=== PATIENT | male | born 1970 | race American Indian/Alaskan Native ===

== ENCOUNTER 2021-06-22 13:15 | Observation (INO) | payer SELFPAY ==
[2021-06-22] MEDS ORDERED: NA CHLORIDE 0.9% 1,000 ML ONE (14:17)
[2021-06-22] MEDS ORDERED: THIAMINE 200 MG/2 ML INJ ONE (14:17)
[2021-06-22] MEDS ORDERED: LEVETIRACETAM 500 MG/5 ML VIAL IV ONE (14:17)
[2021-06-22] MEDS ORDERED: NA CHLORIDE 0.9% 100 ML IV ONE (14:17)
[2021-06-22] MEDS ORDERED: LORazepam 2 MG/ML VIAL ONE ×2 (14:17→17:50)
[2021-06-22 14:21] LABS: Absolute Lymphocytes (CBC) 1.9 K/uL (0.7-4.9); Hematocrit 40.8 % (39.6-49.0); Lymphocytes % 19.7 % (15.3-44.8); MPV 7.7 fL (7.6-11.3); RBC Red Blood Cell Count 4.55 M/uL (4.33-5.43)
[2021-06-22 14:26] LABS: Protime INR 0.97
[2021-06-22 14:53] LABS: ALT/SGPT 25 U/L (12-78); AST/SGOT 10 U/L (15-37); Albumin 3.7 g/dL (3.4-5.0); Alkaline Phosphatase 116 U/L (45-117); BUN Blood Urea Nitrogen 11 mg/dL (7-18); Bicarbonate 27 mmol/L (21-32); Bilirubin Total 0.3 mg/dL (0.2-1.0); Glucose Level 103 mg/dL (74-106); Magnesium 2.7 mg/dL (1.8-2.4); NT PRO-BNP 16 pg/mL (<125); Potassium 3.7 mmol/L (3.5-5.1); Sodium Level 141 mmol/L (136-145); Troponin High Sensitivity 20.4 pg/mL (<58.9)
[2021-06-22 14:55] LABS: Bilirubin Direct < 0.1 mg/dL (0-0.2)
--- NOTE | 2021-06-22 15:03 | RAD REPORT ---
EXAM DESCRIPTION: CT - Head Brain Wo Cont - 06/22/2021 2:56 pm CLINICAL HISTORY: Alteration of awareness/confusion COMPARISON: None TECHNIQUE: Computed axial tomography of the head was obtained. IV contrast was not requested. All CT scans are performed using dose optimization technique as appropriate and may include automated exposure control or mA/KV adjustment according to patient size. FINDINGS: An intracranial bleed is not seen . The ventricles are normal in caliber. No extra-axial fluid collection is noted. Mild to moderate low-density areas within periventricular, deep and subcortical white matter likely r epresent ischemic changes secondary to small vessel disease. Fluid within the sinuses/ mastoids is not seen. IMPRESSION: No acute intracranial abnormality is seen. If patient's symptoms persist MRI of the bra in would be recommended.
--- NOTE | 2021-06-22 15:25 | RAD REPORT ---
EXAM DESCRIPTION: Maurizio Single View06/22/2021 3:14 pm CLINICAL HISTORY: Cough COMPARISON: none FINDINGS: The lungs appear clear of acute infiltrate. The heart is normal size IMPRESSION: No acute abnormalities displayed
--- NOTE | 2021-06-22 15:29 | EDPHYS ---
Physician Documentation [facility] Name: Marcell Platt Age: 50 yrs Sex: Male : 1970 Arrival Date: 06/22/2021 Time: 13:27 Bed 2 Private MD: FAN Physician Serafin Rivas HPI: 06/22 13:47 This 50 yrs old Male presents to ER via Wheelchair with complaints of andreia Probable Seizure, Loss Of Vision. 13:47 The patient presents after having a single isolated seizure, that lasted 1 minute(s). andreia Character of seizure(s): Loss of consciousness: the patient did not lose consciousness. Seizure onset: just prior to arrival. Context: the seizure(s) was witnessed, by family. Seizure Hx: Seizure medications: Keppra. Associated injury: The patient did not suffer any apparent associated injury. Current symptoms: confusion. The patient has experienced similar episodes in the past, several times. Historical: - Allergies: 13:47 No Known Allergies; ab2 - PMHx: 13:47 Seizure; ab2 - PSHx: 13:47 None; ab2 - Immunization history:: Adult Immunizations up to date. - Social history:: Smoking status: unknown. - Family history:: not pertinent. ROS: 13:47 Constitutional: Negative for fever, chills, and weight loss, Eyes: Negative for injury, andreia pain, redness, and discharge, ENT: Negative for injury, pain, and discharge, Neck: Negative for injury, pain, and swelling, Cardiovascular: Negative for chest pain, palpitations, and edema, Respiratory: Negative for shortness of breath, cough, wheezing, and pleuritic chest pain, Abdomen/GI: Negative for abdominal pain, nausea, vomiting, diarrhea, and constipation, Back: Negative for injury and pain, : Negative for injury, bleeding, discharge, and swelling, MS/Extremity: Negative for injury and deformity, Skin: Negative for injury, rash, and discoloration, Psych: Negative for depression, anxiety, suicide ideation, homicidal ideation, and hallucinations, Allergy/Immunology: Negative for hives, rash, and allergies, Endocrine: Negative for neck swelling, polydipsia, polyuria, polyphagia, and marked weight changes, Hematologic/Lymphatic: Negative for swollen nodes, abnormal bleeding, and unusual bruising. 13:47 Neuro: Positive for seizure activity, weakness. Exam: 13:47 Constitutional: This is a well developed, well nourished patient who is awake, alert, andreia and in no acute distress. Head/Face: Normocephalic, atraumatic. Eyes: Pupils equal round and reactive to light, extra-ocular motions intact. Lids and lashes normal. Conjunctiva and sclera are non-icteric and not injected. Cornea within normal limits. Periorbital areas with no swelling, redness, or edema. ENT: Nares patent. No nasal discharge, no septal abnormalities noted. Tympanic membranes are normal and external auditory canals are clear. Oropharynx with no redness, swelling, or masses, exudates, or evidence of obstruction, uvula midline. Mucous membranes moist. Neck: Trachea midline, no thyromegaly or masses palpated, and no cervical lymphadenopathy. Supple, full range of motion without nuchal rigidity, or vertebral point tenderness. No Meningismus. Chest/axilla: Normal chest wall appearance and motion. Nontender with no deformity. No lesions are appreciated. Cardiovascular: Regular rate and rhythm with a normal S1 and S2. No gallops, murmurs, or rubs. Normal PMI, no JVD. No pulse deficits. Respiratory: Lungs have equal breath sounds bilaterally, clear to auscultation and percussion. No rales, rhonchi or wheezes noted. No increased work of breathing, no retractions or nasal flaring. Abdomen/GI: Soft, non-tender, with normal bowel sounds. No distension or tympany. No guarding or rebound. No evidence of tenderness throughout. Back: No spinal tenderness. No costovertebral tenderness. Full range of motion. Male : Normal genitalia with no discharge or lesions. Skin: Warm, dry with normal turgor. Normal color with no rashes, no lesions, and no evidence of cellulitis. MS/ Extremity: Pulses equal, no cyanosis. Neurovascular intact. Full, normal range of motion. Psych: Awake, alert, with orientation to person, place and time. Behavior, mood, and affect are within normal limits. 13:47 Neuro: Orientation: to person, Not oriented to place, time, situation, Mentation: confused, Memory: unable to test, Cranial nerves: grossly normal, is grossly normal based on the patient's age, no acute changes, Cerebellar function: is grossly normal, is grossly normal based on the patient's age, no acute changes, Motor: moves all fours, strength is normal, Sensation: is normal, no obvious gross deficits, appropriate Gait: not tested. Babinski testing is normal, seizure activity, is not displayed by the patient. 14:07 ECG was reviewed by the Attending Physician. andreia 17:50 Neck: ROM/movement: is normal, no acute changes, limited range of motion, is not andreia appreciated, Meningeal signs: are not present, Kernig's sign is negative, Brudzinski's sign is negative. Vital Signs: 13:45 BP 133 / 89; Pulse 59; Resp 18; Temp 97.3; Pulse Ox 100% on R/A; Weight 81.65 kg; ab2 Height 5 ft. 9 in. (175.26 cm); Pain 0/10; 15:00 BP 127 / 86; Pulse 61; Resp 18; Pulse Ox 98% ; ph 16:00 BP 129 / 92; Pulse 64; Resp 18; Pulse Ox 99% on R/A; ph 17:00 BP 151 / 92; Pulse 59; Resp 18; Pulse Ox 97% on R/A; ph 13:45 Body Mass Index 26.58 (81.65 kg, 175.26 cm) ab2 Izabela Coma Score: 13:48 Eye Response: spontaneous(4). Verbal Response: confused(4). Motor Response: obeys ab2 commands(6). Total: 14. MDM: 13:40 Patient medically screened. andreia 13:52 Differential diagnosis: cerebral vascular accident, drug overdose, cardiac arrhythmia, andreia seizure, TIA. Data reviewed: vital signs, nurses notes, lab test result(s), EKG, radiologic studies, CT scan, plain films. Data interpreted: traffic monitor specialist: rate is 59 beats/min, rhythm is regular, Pulse oximetry: on room air is 100 %. Test interpretation: by ED physician or midlevel provider: ECG, plain radiologic studies. Counseling: I had a detailed discussion with the patient and/or guardian regarding: the historical points, exam findings, and any diagnostic results supporting the discharge/admit diagnosis, lab results, radiology results, the need for outpatient follow up, for definitive care, 06/22 14:15 Order name: Basic Metabolic Panel; Complete Time: 15:28 EDMS 06/22 14:15 Order name: Liver (Hepatic) Function; Complete Time: 15:28 EDNM 06/22 13:47 Order name: XRAY Chest (1 view); Complete Time: 15:28 [facility] 06/22 13:47 Order name: CT Head Brain wo Cont; Complete Time: 15:28 [facility] 06/22 14:15 Order name: Troponin High Sensitivity; Complete Time: 15:28 EDNM 06/22 14:15 Order name: NT PRO-BNP; Complete Time: 15:28 [facility] 06/22 14:15 Order name: Acetaminophen Level; Complete Time: 15:28 EDNM 06/22 14:15 Order name: Magnesium; Complete Time: 15:28 [facility] 06/22 14:15 Order name: Alcohol Serum/Plasma; Complete Time: 15:28 [facility] 06/22 14:15 Order name: Salicylates Level EDNM 06/22 14:15 Order name: CBC with Automated Diff; Complete Time: 15:28 [facility] 06/22 14:15 Order name: Protime (+INR); Complete Time: 15:28 [facility] 06/22 14:15 Order name: PTT, Activated Partial Thromb; Complete Time: 15:28 [facility] 06/22 14:15 Order name: Urine Drug Screen; Complete Time: 18:12 [facility] 06/22 15:47 Order name: AMMONIA; Complete Time: 18:12 [facility] 06/22 16:48 Order name: COVID-19 SARS RT PCR (Document "Date of Onset" if Symptomatic) 06/22 17:17 Order name: Urine Dipstick-Ancillary; Complete Time: 18:12 [facility] 06/22 13:47 Order name: EKG; Complete Time: 14:36 [facility] 06/22 13:47 Order name: Cardiac monitoring; Complete Time: 13:55 [facility] 06/22 13:47 Order name: EKG - Nurse/Tech; Complete Time: 13:55 [facility] 06/22 13:47 Order name: IV Saline Lock; Complete Time: 13:55 [facility] 06/22 13:47 Order name: Labs collected and sent; Complete Time: 14:08 [facility] 06/22 13:47 Order name: O2 Per Protocol; Complete Time: 13:55 [facility] 06/22 13:47 Order name: O2 Sat Monitoring; Complete Time: 14:08 [facility] 06/22 13:47 Order name: Suicide Screening (Combs); Complete Time: 19:47 andreia 06/22 13:47 Order name: Urine Dipstick-Ancillary (obtain specimen); Complete Time: 19:47 andreia 06/22 13:47 Order name: Seizure Precautions; Complete Time: 14:07 andreia EC: Rate is 60 beats/min. Rhythm is regular. QRS [place] is Normal. [place] interval is normal. QRS andreia interval is normal. QT interval is normal. No Q waves. T waves are Normal. No ST changes noted. Clinical impression: Normal ECG and No evidence of ischemia. Interpreted by me. Reviewed by me. Administered Medications: 14:31 Drug: NS 0.9% 1000 ml Route: IV; Rate: 1 bolus; Site: right antecubital; ph 16:50 Follow up: Response: No adverse reaction; IV Status: Completed infusion ph 14:31 Drug: Keppra (levETIRAcetam) 1000 mg Route: IV; Rate: per protocol; Site: right ph antecubital; 14:50 Follow up: Response: No adverse reaction; IV Status: Completed infusion ph 14:31 Drug: Thiamine 100 mg Route: IV; Rate: per protocol; Site: right antecubital; ph 14:45 Follow up: Response: No adverse reaction; IV Status: Completed infusion ph 14:31 Drug: Ativan (LORazepam) 1 mg Route: IVP; Site: right antecubital; ph 19:35 Follow up: Response: No adverse reaction ph 18:00 Drug: Geodon (ziprasidone) 20 mg Route: IM; Site: right deltoid; vg1 19:34 Follow up: Response: No adverse reaction ph Disposition Summary: 06/22/21 16:32 Hospitalization Ordered Hospitalization Status: Observation andreia Provider: Julio Alvarenga andreia Condition: Fair(06/22/21 16:32) andreia Problem: new(06/22/21 16:32) andreia Symptoms: have improved(06/22/21 16:32) andreia Bed/Room Type: Standard andreia Location: [facility] ER HOLD(06/22/21 19:27) Room Assignment: ERHOLD-(06/22/21 19:27) mw Diagnosis - Epileptic seizures related to external causes, not intractable(06/22/21 16:32) andreia - Altered mental status, unspecified andreia Forms: - Medication Reconciliation Form andreia - SBAR form andreia Signatures: Dispatcher [employer] EDMS Shannon Ann RN RN mw Anderson, Corey, MD MD cha Hall, Patricia RN RN [facility], Palmira, RN RN vg1 Fili Napoles2 Corrections: (The following items were deleted from the chart) 14:46 14:36 BASIC METABOLIC PANEL+C.LAB.BRZ ordered. EDMS EDMS 14:46 14:36 HEPATIC FUNCTION+C.LAB.BRZ ordered. EDMS EDMS 14:46 14:36 MAGNESIUM+C.LAB.BRZ ordered. EDMS EDMS 14:46 14:36 PROBNP+C.LAB.BRZ ordered. EDMS EDMS 14:46 14:36 Troponin High Sensitivity+C.LAB.BRZ ordered. EDMS EDMS 14:46 14:36 ACETAMINOPHEN+C.LAB.BRZ ordered. EDMS EDMS 14:46 14:36 ETHANOL+C.LAB.BRZ ordered. EDMS EDMS 14:47 14:36 CBC+H.LAB.BRZ ordered. EDMS EDMS 14:47 14:36 PROTIME (+INR)+COAG.LAB.BRZ ordered. EDMS EDMS 14:47 14:36 PTT, ACTIVATED+COAG.LAB.BRZ ordered. EDMS EDMS 14:47 14:36 SALICYLATE+C.LAB.BRZ ordered. EDMS EDMS 14:47 14:36 URINE DRUG SCREEN+CHEM UR.LAB.BRZ ordered. EDMS EDMS 16:31 15:29 Home andreia andreia 16:31 15:29 new nadreia andreia 16:31 15:29 have improved andreia andreia 16:31 15:29 Stable andreia andreia 16:31 15:29 Epileptic seizures related to external causes, not intractable andreia andreia 19:27 16:32 Telemetry/MedSurg (observation) andreia mw 19: 16:32 andreia mw
--- NOTE | 2021-06-22 15:29 | ER ---
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 Pt was disoriented and stated he ab2 couldn't see out of either of his eyes. Pt disoriented on arrival. Coronavirus screen: Client denies travel out of the [place] in the last 14 days. At this time, the client does not indicate any symptoms associated with coronavirus-19. Ebola Screen: Patient negative for fever greater than or equal to 101.5 degrees Fahrenheit, and additional compatible Ebola Virus Disease symptoms Patient denies exposure to infectious person. Patient denies travel to an Ebola-affected area in the 21 days before illness onset. No symptoms or risks identified at this time. Initial Sepsis Screen: Does the patient meet any 2 criteria? No. Patient's initial sepsis screen is negative. Does the patient have a suspected source of infection? No. Patient's initial sepsis screen is negative. Risk Assessment: Do you want to hurt yourself or someone else? Patient reports no desire to harm self or others. Onset of symptoms is unknown. 13:45 Method Of Arrival: Wheelchair ab2 13:45 Acuity: STEPHANY 3 ab2 Triage Assessment: 13:48 General: Appears in no apparent distress. comfortable, Behavior is calm, cooperative, ab2 appropriate for age. Pain: Denies pain. Neuro: Level of Consciousness is awake, alert, Oriented to person, place, situation, Shucker are equal bilaterally Moves all extremities. Speech is normal. Neuro: Seizure activity reported prior to arrival. Cardiovascular: No deficits noted. Denies chest pain, shortness of breath, Patient's skin is warm and dry. Respiratory: Airway is patent Respiratory effort is even, unlabored, Respiratory pattern is regular. GI: No deficits noted. No signs and/or symptoms were reported involving the gastrointestinal system. Derm: No deficits noted. Historical: - Allergies: 13:47 No Known Allergies; ab2 - PMHx: 13:47 Seizure; ab2 - PSHx: 13:47 None; ab2 - Immunization history:: Adult Immunizations up to date. - Social history:: Smoking status: unknown. - Family history:: not pertinent. Screenin:30 Abuse screen: Denies threats or abuse. Denies injuries from another. Nutritional ph screening: No deficits noted. Tuberculosis screening: No symptoms or risk factors identified. Fall Risk None identified. Assessment: 14:30 Reassessment: Pt oriented to person and place but seems confused, when questioned about ph seizure hx pt states " I take two pills a day and I did it every day, over and over and then I started taking one pill a day." Speech then becomes garbled, rambling and difficult to understand. General: Appears in no apparent distress. slender, Behavior is cooperative. Pain: Denies pain. Neuro: Level of Consciousness is awake, alert, obeys commands, Oriented to person, place, Reports blurred vision headache. Cardiovascular: Capillary refill < 3 seconds in bilateral fingers Patient's skin is warm and dry. Respiratory: Airway is patent Respiratory effort is even, unlabored, Respiratory pattern is regular, symmetrical. Derm: Skin is intact, Skin is pink, warm \\T\\ dry. Musculoskeletal: Circulation, motion, and sensation intact. Range of motion: intact in all extremities. 15:05 Reassessment: Pt returned from CT, health physics technician reports that pt was very confused during CT ph and had trouble following directions. Also reported that pt was talking about "[place] and that they were kicking him out of the [place]." Pt now resting quietly in bed, fluids infusing VSS. 16:00 Reassessment: Patient appears in no apparent distress at this time. Patient and/or ph family updated on plan of care and expected duration. Pain level reassessed. Pt's partner at bedside, states that pt has been having seizures for some time but they have become more frequent over the past few months, " Then he started taking the Keppra twice a day and that's when he started getting confused. The Dr where we are from decreased his dose to once a day but he's still having confusion." States that pt does not use street drugs or alcohol. 17:15 Reassessment: Pt up out of bed, taking off hospital gown, noted to have d/c own IV, ph states, " Where are my shirts and shit, were are my shoes." Pt states that he is leaving, I explained that he was being admitted to see the neurologist, pt states, " I know, but where are my shoes? They keep calling my phone and calling, then hanging up.". 17:20 Reassessment: Pt fully clothed and leaving room, asked pt to come back to room so he ph can wait to be admitted and he refused, wandering around ED attempting to find exit, going into empty pt rooms, called friend Antonino to come back to ED to try and calm pt down, pt then went into lobby and tried to open windows as if they were doors, " Just let me get out of here man." Explained to pt that we did not want him to leave by himself because we were concerned for his safety. PD contacted by unit manager rn. 18:00 Reassessment: Pt's friend/roommate Antonino arrived at ED and was able to convince pt to ph return to exam room 2, accompanied by BETTY CONTRERAS, pt sat in bed , asked him to remove his hoodie so that we could put the hospital gown back on, pt did so, then threw his hoodie into nurse's face. Johnson administered IM, pt lying in bed w/ friend at bedside. 18:35 Reassessment: Pt asleep w/ equal and unlabored respirations. ph 19:55 General: attempted to start IV. pt woke up, removed tourniquet "get away, get away, get as6 away, get away" pt put covers over head and would not allow vital signs to be obtained. respirations are even and unlabored. no apparent distress noted . Vital Signs: 13:45 BP 133 / 89; Pulse 59; Resp 18; Temp 97.3; Pulse Ox 100% on R/A; Weight 81.65 kg; ab2 Height 5 ft. 9 in. (175.26 cm); Pain 0/10; 15:00 BP 127 / 86; Pulse 61; Resp 18; Pulse Ox 98% ; ph 16:00 BP 129 / 92; Pulse 64; Resp 18; Pulse Ox 99% on R/A; ph 17:00 BP 151 / 92; Pulse 59; Resp 18; Pulse Ox 97% on R/A; ph 13:45 Body Mass Index 26.58 (81.65 kg, 175.26 cm) ab2 [place] Coma Score: 13:48 Eye Response: spontaneous(4). Verbal Response: confused(4). Motor Response: obeys ab2 commands(6). Total: 14. ED Course: 13:27 Patient arrived in ED. jj6 13:40 Serafin Rivas MD is Attending Physician. andreia 13:47 Triage completed. ab2 13:49 Arm band placed on right wrist. ab2 14:00 Inserted saline lock: 20 gauge in left antecubital area, using aseptic technique. Blood kj1 collected. 14:00 Initial lab(s) drawn, by me, sent to lab. kj1 14:20 Seizure precautions initiated. ph 14:25 Sarah Curtis, RN is Primary Nurse. ph 14:57 CT Head Brain wo Cont In Process Unspecified. EDMS 15:16 XRAY Chest (1 view) In Process Unspecified. EDMS 15:29 Chang Acosta MD is Referral Physician. andreia 16:32 Julio Alvaregna is Hospitalizing Provider. andreia 17:20 COVID swab sent to lab. vg1 17:33 [facility] PD called/ patient not wanting to come back inside building. eb 04 06:12 No provider procedures requiring assistance completed. Patient admitted, IV remains in as6 place. 08:19 [facility] Police department called and notified of the patient busting the eb bay doors open and leaving/ family not at bedside but notified by charge nurse of patient leaving. Administered Medications: 06/22 14:31 Drug: NS 0.9% 1000 ml Route: IV; Rate: 1 bolus; Site: right antecubital; ph 16:50 Follow up: Response: No adverse reaction; IV Status: Completed infusion ph 14:31 Drug: Keppra (levETIRAcetam) 1000 mg Route: IV; Rate: per protocol; Site: right ph antecubital; 14:50 Follow up: Response: No adverse reaction; IV Status: Completed infusion ph 14:31 Drug: Thiamine 100 mg Route: IV; Rate: per protocol; Site: right antecubital; ph 14:45 Follow up: Response: No adverse reaction; IV Status: Completed infusion ph 14:31 Drug: Ativan (LORazepam) 1 mg Route: IVP; Site: right antecubital; ph 19:35 Follow up: Response: No adverse reaction ph 18:00 Drug: Geodon (ziprasidone) 20 mg Route: IM; Site: right deltoid; vg1 19:34 Follow up: Response: No adverse reaction ph Outcome: 15:29 Discharge ordered by . andreia 16:32 Decision to Hospitalize by Provider. andreia 06/23 06:12 Admitted to ER Hold. Please see [facility] for further documentation. as6 Condition: stable 09:06 Patient left the ED. ss Signatures: Dispatcher [employer] EDOR Serafin Rivas, Hanna Hayden MD, cha, RN RN ss Sarah Curtis RN RN Aline Bardales Kandis kj1 Palmira Coker RN RN vg1 Noy Arthur Ashby, RN RN as6 Fili Napoles Corrections: (The following items were deleted from the chart) 06/22 14:06 14:05 Initial lab(s) drawn, by fl, sent to lab. kj1 kj1 14:32 14:31 Thiamine 100 mg IV at per protocol in left antecubital ph ph
[2021-06-22 17:17] LABS: Urine Blood Negative (Negative); Urine Glucose Negative (Negative); Urine Protein Negative (Negative); Urine Specific Gravity 1.015 (1.005-1.030)
--- NOTE | 2021-06-22 17:25 | P.HP ---
Certification for Inpatient Patient admitted to: Observation With expected LOS: <2 Midnights Practitioner: I am a practitioner with admitting privileges, knowledge of patient current condition, hospital course, and medical plan of care. Services: Services provided to patient in accordance with Admission requirements found in Title 42 Section 412.3 of the Code of Federal Regulations Patient History Date of Service: 06/22/21 Reason for admission: Seizures History of Present Illness: 50-year-old gentleman with a history of seizure disorder was brought to the emergency department because patient had a seizure associated with altered mental status. Per report his Keppra dose was decreased from 500 mg twice a day to 500 mg daily. Patient was somnolent during my examination in the ED and could not provide any history. He was even refusing physical examination. Head CT negative. Blood work unremarkable. Toxicology screen is negative. Neurology-Dr. Acosta contacted, patient given a loading dose of Keppra 1000 mg IV. He is hospitalized for further management. - Past Medical/Surgical History -: Seizure disorder - Social History Smoking Status: Unknown if ever smoked Place of Residence: Home Review of Systems is unable to be obtained (Due to AMS) Physical Examination - Physical Exam General: In no apparent distress, Other (Somnolent) HEENT: Sclerae nonicteric Cardiovascular: No edema Gastrointestinal: Non-distended Musculoskeletal: No swelling Integumentary: No rashes, No cyanosis Neurological: Other (Somnolent, patient moves all extremities.) Other Physical/Emotional Findings: Patient refused examination. - Studies Laboratory Data (last 24 hrs) 06/22/21 14:00: PT 10.7, INR 0.97, APTT 37.2 H 06/22/21 14:00: WBC 9.6, Hgb 13.8, Hct 40.8, Plt Count 253 06/22/21 14:00: Sodium 141, Potassium 3.7, BUN 11, Creatinine 0.93, Glucose 103, Magnesium 2.7 H, Total Bilirubin 0.3, AST 10 L, ALT 25, Alkaline Phosphatase 116 06/22/21 13:47: PT Cancelled, INR Cancelled, APTT Cancelled 06/22/21 13:47: WBC Cancelled, Hgb Cancelled, Hct Cancelled, Plt Count Cancelled 06/22/21 13:47: Sodium Cancelled, Potassium Cancelled, BUN Cancelled, Creatinine Cancelled, Glucose Cancelled, Magnesium Cancelled, Total Bilirubin Cancelled, AST Cancelled, ALT Cancelled, Alkaline Phosphatase Cancelled Assessment and Plan - Problems (Diagnosis) (1) Seizures Current Visit: Yes Status: Acute (2) Altered mental status Current Visit: Yes Status: Acute - Plan AMS likely due to post ictal state. Place patient under observation Patient given a loading dose of IV Keppra. Will continue with Keppra IV 500 mg twice daily. Neurology consulted Seizure precautions Neurochecks Monitor and optimize electrolytes. - Advance Directives Does patient have a Living Will: No Does patient have a Durable POA for Healthcare: No
[2021-06-22 17:35] LABS: Barbiturates NEGATIVE (NEGATIVE); Benzodiazepines NEGATIVE (NEGATIVE); Cocaine NEGATIVE (NEGATIVE); METHAMPHETAM NEGATIVE (NEGATIVE); Methadone NEGATIVE (NEGATIVE); Opiates NEGATIVE (NEGATIVE); Phencyclidine NEGATIVE (NEGATIVE); THC Cannibis NEGATIVE (NEGATIVE)
[2021-06-22] MEDS ORDERED: ZIPRASIDONE MESYLA 20 MG/VIAL IM ONE (17:51)
[2021-06-22] MEDS ORDERED: WATER FOR INJ,STERILE 10 ML ONE (17:51)
[2021-06-23] MEDS ORDERED: NA CHLORIDE 0.9% 1,000 ML IV SCH (02:48)
[2021-06-23] MEDS ORDERED: ONDANSETRON 4 MG/2 ML VIAL IV PRN (02:48)
[2021-06-23 06:11] VITALS: O2SAT 96
[2021-06-23 06:13] VITALS: BMI 12.0
--- NOTE | 2021-06-23 08:58 | P.DS ---
Admission Date: 06/22/21 Discharge Date: 06/23/21 Disposition: AMA-LEFT AGAINST MEDICAL ADVIC Discharge Condition: FAIR Reason for Admission: Seizures - Problems (1) Seizures Status: Acute (2) Altered mental status Status: Acute Brief History of Present Illness: 50-year-old gentleman with a history of seizure disorder was brought to the emergency department because patient had a seizure associated with altered mental status. Per report his Keppra dose was decreased from 500 mg twice a day to 500 mg daily. Patient was somnolent during my examination in the ED and could not provide any history. He was even refusing physical examination. Head CT negative. Blood work unremarkable. Toxicology screen is negative. Neurology-Dr. Acosta contacted, patient given a loading dose of Keppra 1000 mg IV. He is hospitalized for further management. Hospital Course: Patient placed on observation on the medical floor and started on IV Keppra. Patient was somnolent initially somnolent. I am told patient became more alert this morning and decided to sign out AGAINST MEDICAL ADVICE. He would not wait to be evaluated so I did not get a chance to see him before he left. Recommended he takes Keppra 500 mg twice a day and follow-up with his neurologist CHAPO. Other Physical/Emotional Findings: Patient refused examination. Laboratory Data at Discharge: WBC 9.6 K/uL (4.3-10.9) 06/22/21 14:00 Hgb 13.8 g/dL (13.6-17.9) 06/22/21 14:00 Hct 40.8 % (39.6-49.0) 06/22/21 14:00 Plt Count 253 K/uL (152-406) 06/22/21 14:00 PT 10.7 SECONDS (9.5-12.5) 06/22/21 14:00 INR 0.97 06/22/21 14:00 APTT 37.2 SECONDS (24.3-36.9) H 06/22/21 14:00 Sodium 141 mmol/L (136-145) 06/22/21 14:00 Potassium 3.7 mmol/L (3.5-5.1) 06/22/21 14:00 BUN 11 mg/dL (7-18) 06/22/21 14:00 Creatinine 0.93 mg/dL (0.55-1.3) 06/22/21 14:00 Glucose 103 mg/dL (74-106) 06/22/21 14:00 Magnesium 2.7 mg/dL (1.8-2.4) H 06/22/21 14:00 Total Bilirubin 0.3 mg/dL (0.2-1.0) 06/22/21 14:00 AST 10 U/L (15-37) L 06/22/21 14:00 ALT 25 U/L (12-78) 06/22/21 14:00 Alkaline Phosphatase 116 U/L (45-117) 06/22/21 14:00 Home Medications: levETIRAcetam [Keppra Tab] 500 mg PO BID #60 tab 06/23/21 New Medications: levETIRAcetam [Keppra Tab] 500 mg PO BID #60 tab Diet: Regular Activity: Seizure precautions Followup: Unknown,U [Primary Care Provider] - Chang Acosta MD [ASSOCIATE-ACTIVE - CAN ADMIT] - 1-2 Weeks
[2021-06-23] MEDS ORDERED: ENOXAPARIN 40 MG/0.4 ML SQ SCH (09:00)
[2021-06-23] MEDS ORDERED: levETIRAcetam 500 MG in NA CHLORIDE 0.9% 100 ML IV SCH (09:00)
[2021-06-23 09:26] VITALS: TEMP 97.3
[2021-06-23 09:30] VITALS: BP 151/92
--- NOTE | 2021-06-24 09:41 | EKG ---
Test Date: 2021-06-22 Test Time: 13:58:37 Associate Research Scientist: JARET MEASUREMENT RESULTS: Intervals: Rate: 60 SC: 196 QRSD: 126 QT: 460 QTc: 460 Celestine: P: 56 SC: 196 QRS: 38 T: 50 INTERPRETIVE STATEMENTS: Normal sinus rhythm Nonspecific intraventricular block Abnormal ECG No previous ECG available for comparison Electronically Signed On 06-24-21 09:36:04 CDT by Gavino Escobedo
== END 2021-06-23 08:55 | disposition left against medical advice (07) ==
LOC: ER 13:15 → ERHOLD 17:05
PROVIDERS: ADMIT Internal Medicine; ATTEND Internal Medicine
DX: R56.9 Unspecified convulsions (principal); Z53.21 Procedure and treatment not carried out due to patient leaving prior to being seen by health care provider; R41.82 Altered mental status, unspecified; Z20.822 Contact with and (suspected) exposure to COVID-19
CPT/HCPCS: 36415; 70450; 71045; 80048; 80076; 80307; 80320; 80329; 81003; 82140; 83735; 83880; 84484; 85025; 85610; 85730; 93005; 96361; 96365; 96372; 96375; 99285; G0378; J1953; J3411; J3486; J7030; U0003

== ENCOUNTER 2022-10-03 18:53 | Inpatient (IN) | payer OTHER ==
--- NOTE | 2022-10-03 19:26 | RAD REPORT ---
EXAM DESCRIPTION: CT - Ct Stroke Brain Wo Cont - 10/03/2022 7:16 pm CLINICAL HISTORY: STROKE ALERT Headache, drowsiness, CVA COMPARISON: Head Brain Wo Cont dated 06/22/2021 TECHNIQUE: All CT scans are performed using dose optimization technique as appropriate and may inclu de automated exposure control or mA/KV adjustment according to patient size. FINDINGS: No intracranial hemorrhage, hydrocephalus or extra-axial fluid collection.Advanced general ized brain atrophy is present with moderate periventricular and deep white matter chronic microvascul ar ischemic changes.3 cm area of diminished density in the left parietal region may be related to starr or infarct. The paranasal sinuses and mastoids are clear. The calvarium is intact. IMPRESSION: No acute intracranial abnormality. If there is continued clinical concern for CVA, MR imaging of the brain would be recommended. The findings were discussed with Dr. Alonso in the ER On 10/03/2022 at 7:20 p.m. by telephone.
--- OUTSIDE RECORDS SUMMARY | 2022-10-03 19:35 | XMS REPORT | Continuity of Care Document ---
:1970 Author Organization [facility] t Address [address] [place] [address] [place] [id number] Care Team Providers Name Role Phone Pcp, Patient Does Not Have Primary Care Physician Unavailabl e Payers Payer Name Policy Type Policy Number Effective Date Expiration Date S ource Problems Condition Condition Condition Status Onset Resolution Last Treating Co mments Source Name Details Category Date Date Treatment Clinician Date Hallucinat Hallucinat Disease Active H arris ions ions Health Allergies, Adverse Reactions, Alerts Allergy Allergy Status Severity Reaction(s) Onset Inactive Treating Comm ents Source Name Type Date Date Clinician Penicill Propensi Active Other [place] ins ty to 07-02 Health adverse 00:00: reaction 00 s to drug Social History Social Habit Start Date Stop Date Quantity Comments Source Gender identity [place] Dario alth Sexual orientation [facility] Sex Assigned At [birth year] [facility] 00:00:00 00:00:00 Medications This patient has no known medications. Procedures This patient has no known procedures. Plan of Care Planned Activity Planned Date Details Comments Source Future Scheduled Test 2022-12-14 00:00:00 IMM Influenza [facility] Seasonal (>/= 19 yrs) [code = IMM Influenza Seasonal (>/= 19 yrs)] Future Scheduled Test 2020 00:00:00 Screening for [facility] malignant neoplasm of colon (procedure) [code = 650598191] Future Scheduled Test 1971-04-27 00:00:00 COVID-19 Vaccine (#1) [facility] [code = COVID-19 Vaccine (#1)] Encounters Start End Encounter Admission Attending Care Care Encounter Source Date/Time Date/Time Type Type Clinicians Facility Department ID 2022-09-30 2022-09-30 Outpatient [facility] SFA [id number] [place] 09:55:13 09:55:13 [id number] F Cla[place] 2021-07-02 2021-07-03 Emergency [facility] MED [id number] [place] 15:58:00 03:36:00 Health Results This patient has no known results.
--- NOTE | 2022-10-03 19:37 | RAD REPORT ---
EXAM DESCRIPTION: CT - Head angio - 10/03/2022 7:29 pm CLINICAL HISTORY: AMS; R SIDED WEAKNESS Headache, drowsiness, CVA COMPARISON: Ct Stroke Brain Wo Cont dated 10/03/2022; Head Brain Wo Cont dated 06/22/2021 TECHNIQUE: CT angiography of the head was performed with MIPs. All CT scans are performed using dose optimization technique as appropriate and may include automated exposure control or mA/KV adjustment according to patient size. FINDINGS: No evidence of large vessel occlusion. No evidence of aneurysm is detected. No flow-limiti ng stenosis or vascular malformation identified. Antegrade flow is seen in the vertebral arteries. The vertebral arteries are codominant. The visualized dural venous sinuses are patent. IMPRESSION: No significant flow abnormality is detected.
--- NOTE | 2022-10-03 19:39 | RAD REPORT ---
EXAM DESCRIPTION: CT - Neck Angio - 10/03/2022 7:29 pm CLINICAL HISTORY: AMS; R SIDED WEAKNESS Headache, drowsiness, CVA COMPARISON: No comparisons TECHNIQUE: CT angiography of the neck vessels was performed with MIPs. All CT scans are performed using dose optimization technique as appropriate and may include automated exposure control or mA/KV adjustment according to patient size. FINDINGS: A left aortic arch is identified with normal three vessel configuration of the great vesse ls. No significant flow abnormality is seen of the common carotid bilaterally. No significant stenosis is identified involving the cervical segments of both internal carotid arteri es. Normal flow is seen within both vertebral arteries. There is a 3.8 x 2.2 cm cystic mass anterior to the thyroid cartilage. IMPRESSION: No significant flow abnormality of the neck vessels is identified. 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 NASCET criteria used. Mild 0-49% stenosis Moderate 50-69% stenosis Severe 70-99% stenosis
[2022-10-03 19:54] LABS: Absolute Lymphocytes (CBC) 1.5 K/uL (0.7-4.9); Hematocrit 39.5 % (39.6-49.0); Lymphocytes % 21.3 % (15.3-44.8); MCV 92.1 fL (80-100); MPV 7.5 fL (7.6-11.3); RBC Red Blood Cell Count 4.29 M/uL (4.33-5.43)
[2022-10-03 20:05] LABS: Protime INR 1.09
[2022-10-03 20:16] LABS: Magnesium 2.3 mg/dL (1.6-2.4); Potassium 3.7 mEq/L (3.5-5.1); Troponin High Sensitivity 32.1 pg/mL (<58.9)
--- NOTE | 2022-10-03 20:46 | RAD REPORT ---
EXAM DESCRIPTION: RAD - Chest Single View - 10/03/2022 8:04 pm CLINICAL HISTORY: AMS, right arm weakness Chest pain. COMPARISON: Chest Single View dated 06/22/2021 FINDINGS: Portable technique limits examination quality. The lungs are grossly clear. The heart is normal in size. No displaced fractures. IMPRESSION: No acute intrathoracic process suspected.
--- NOTE | 2022-10-03 20:47 | ER ---
Nurse's Notes [facility] Name: Marcell Platt Age: 51 yrs Sex: Male : 1970 Arrival Date: 10/03/2022 Time: 18:53 Bed 2 Private MD: Diagnosis: Altered mental status, unspecified;Weakness-right upper extremity Presentation: 10/03 18:59 Chief complaint: EMS states: They were called to patient's home for right sided cm10 weakness. EMS also reports that patient has been confused for the last 2 days. Pt can state his name, location and the president. Coronavirus screen: Client denies travel out of the [place] in the last 14 days. At this time, the client does not indicate any symptoms associated with coronavirus-19. Ebola Screen: No symptoms or risks identified at this time. Initial Sepsis Screen: Does the patient meet any 2 criteria? No. Patient's initial sepsis screen is negative. Does the patient have a suspected source of infection? No. Patient's initial sepsis screen is negative. Risk Assessment: Do you want to hurt yourself or someone else? Patient reports no desire to harm self or others. Onset of symptoms was October 01, 2022. 18:59 Method Of Arrival: EMS: [facility] cm10 18:59 Acuity: STEPHANY 3 cm10 19:03 Care prior to arrival: IV initiated. 20 GA, in the right antecubital area, Glucose cm10 check: 109. Triage Assessment: 19:02 General: Appears in no apparent distress. comfortable, Behavior is calm, cooperative. cm10 Neuro: No deficits noted. Level of Consciousness is awake, alert, Oriented to person, place. Respiratory: No deficits noted. Airway is patent Respiratory effort is even, unlabored, Respiratory pattern is regular, symmetrical. Historical: - Allergies: 19:01 PENICILLINS; cm10 - PMHx: 19:01 Seizure; Cerebrovascular accident; cm10 - Immunization history:: Adult Immunizations unknown. - Social history:: Smoking status: Patient/guardian denies using tobacco. Screenin:02 [facility] ED Fall Risk Assessment (Adult) History of falling in the last 3 months, cm10 including since admission No falls in past 3 months (0 pts) Confusion or Disorientation Yes (5 pts) Intoxicated or Sedated No (0 pts) Impaired Gait No (0 pts) Mobility Assist Device Used No (0 pt) Altered Elimination No (0 pt) Score/Fall Risk Level 3 or more points = High Risk Oriented to surroundings, Maintained a safe environment, Hourly rounding (assess needs \T\ fall precautionary measures) done. Abuse screen: Denies threats or abuse. Denies injuries from another. Nutritional screening: No deficits noted. Tuberculosis screening: No symptoms or risk factors identified. Assessment: 19:10 VAN Scoring: Arm Drift: Minor drift Aphasia: Receptive aphasia noted. Provider notified jb4 of +VAN scoring. TNKase (Tenecteplase) Screening: Contraindications: Patient reports onset of signs and symptoms of stroke greater than 6 hours ago: Yes. General: Appears in no apparent distress. comfortable, Behavior is calm, cooperative, appropriate for age. Pain: Denies pain. Neuro: Level of Consciousness is awake, alert, Oriented to person, place, Weakness in right arm(s). Cardiovascular: Patient's skin is warm and dry. Respiratory: Airway is patent Respiratory effort is even, unlabored, Respiratory pattern is regular, symmetrical. GI: No signs and/or symptoms were reported involving the gastrointestinal system. : No signs and/or symptoms were reported regarding the genitourinary system. EENT: No signs and/or symptoms were reported regarding the EENT system. Derm: Skin is intact, Skin is pink, warm \T\ dry. Musculoskeletal: Circulation, motion, and sensation intact. Range of motion: intact in all extremities. 20:06 Reassessment: Per family Pt has history of CVA in the past. Prior deficits are jb4 intermittent confusion, tunnel vision and ataxia on the left side. 20:35 [place] Swallow Protocol Brief Cognitive Screen What is your name? Normal, Where are you jb4 right now? Normal, What year is it? Abnormal: Does not know month or year. 3 oz Water Swallow Challenge: Pt able to drink all water without stopping, coughing, choking or throat clearing: Yes Result: PASS. Vital Signs: 18:59 BP 121 / 89; Pulse 80; Resp 16; Temp 98.7; Pulse Ox 98% ; Weight 65.77 kg; Height 5 ft. cm10 9 in. ; 20:29 BP 129 / 90; Pulse 73; Resp 16; Pulse Ox 100% on R/A; jb4 21:26 BP 122 / 85; Pulse 75; Resp 16; Pulse Ox 98% on R/A; jb4 18:59 Body Mass Index 21.41 (65.77 kg, 175.26 cm) cm10 NIH Stroke Scale Scores: 19:10 NIHSS Score: 3 jb4 19:18 NIHSS Score: 4 cp 20:55 NIHSS Score: 3 jb4 ED Course: 18:58 Patient arrived in ED. cm10 18:59 Serafin Allen PA is PHCP. cp 18:59 Roni Alonso MD is Attending Physician. cp 19:01 Triage completed. cm10 19:02 Arm band placed on Patient placed in an exam room, on a stretcher. cm10 19:10 Shereen Montalvo, RN is Primary Nurse. cm10 19:18 CT Stroke Brain w/o Contrast In Process Unspecified. EDMS 19:31 Head angio In Process Unspecified. EDMS 19:31 Neck Angio In Process Unspecified. EDMS 20:06 Stroke CXR 1 View In Process Unspecified. EDMS 20:12 Bed in low position. Call light in reach. Side rails up X2. Adult w/ patient. Client wm placed on continuous cardiac and pulse oximetry monitoring. NIBP monitoring applied. desk monitor on. 20:12 EKG done, by ED staff, reviewed by Serafin HUTTON. wm 20:45 Dusty Alonso MD is Hospitalizing Provider. cp 20:55 Andrés Jimenez, JORDYN is Primary Nurse. jb4 21:57 No provider procedures requiring assistance completed. Patient admitted, IV remains in jb4 place. Administered Medications: 20:49 Drug: Aspirin PO Chewable Tablet 81 mg Route: PO; jb4 20:49 Drug: foLIC Acid IVPB 1 mg Route: IVPB; Site: right antecubital; jb4 20:49 Drug: Clopidogrel PO 75 mg Route: PO; jb4 20:49 Drug: Atorvastatin PO 40 mg Route: PO; jb4 20:49 Drug: Depakote PO 1000 mg Route: PO; jb4 Medication: 19:03 VIS not applicable for this client. cm10 Outcome: 20:46 Decision to Hospitalize by Provider. cp 21:57 Admitted to Med/surg accompanied by tech, via stretcher, room 232, with chart, Report jb4 called to JORDYN Velez 21:57 Condition: stable 21:57 Discharge instructions given to patient, family, Instructed on the need for admit, Demonstrated understanding of instructions. 21:57 Patient left the ED. jb4 NIH Stroke Scale - NIH Stroke Score Date: 10/03/2022 Time: 19:10 Total Score = 3 10. Dysarthria (speech clarity - read or repeat words) - 0(Normal) 11. Extinction and Inattention (visual/tactile/auditory/spatial/personal) - 0(No abnormality) 1a. Level of Consciousness (LOC) - 0(Alert) 1b. Level of Consciousness (LOC) (Month \T\ Age) - 1(One) 1c. LOC Commands (Open \T\ Closes Eyes/Fiscal Clerk) - 0(Both) 2. Best Gaze (Lateral Gaze Paresis) - 0(Normal) 3. Visual Field Loss - 0(No visual loss) 4. Facial Palsy - 0(Normal) 5a. Left Arm: Motor (10-second hold) - 0(No drift) 5b. Right Arm: Motor (10-second hold) - 1(Drift) 6a. Left Leg: Motor (5-second hold - always test supine) - 0(No drift) 6b. Right Leg: Motor (5-second hold - always test supine) - 0(No drift) 7. Limb Ataxia (finger/nose \T\ heel/castañeda - test with eyes open) - 0(Absent) 8. Sensory Loss (pinprick arms/legs/face) - 0(Normal) 9. Best Language: Aphasia (description/naming/reading) - 1(Mild to moderate aphasia) Initials: jb4 NIH Stroke Scale - NIH Stroke Score Date: 10/03/2022 Time: 19:18 Total Score = 4 10. Dysarthria (speech clarity - read or repeat words) - 1(Mild to Moderate) 11. Extinction and Inattention (visual/tactile/auditory/spatial/personal) - 0(No abnormality) 1a. Level of Consciousness (LOC) - 0(Alert) 1b. Level of Consciousness (LOC) (Month \T\ Age) - 0(Both) 1c. LOC Commands (Open \T\ Closes Eyes/Fiscal Clerk) - 0(Both) 2. Best Gaze (Lateral Gaze Paresis) - 0(Normal) 3. Visual Field Loss - 0(No visual loss) 4. Facial Palsy - 0(Normal) 5a. Left Arm: Motor (10-second hold) - 0(No drift) 5b. Right Arm: Motor (10-second hold) - 1(Drift) 6a. Left Leg: Motor (5-second hold - always test supine) - 0(No drift) 6b. Right Leg: Motor (5-second hold - always test supine) - 0(No drift) 7. Limb Ataxia (finger/nose \T\ heel/castañeda - test with eyes open) - 1(Present in one limb) 8. Sensory Loss (pinprick arms/legs/face) - 0(Normal) 9. Best Language: Aphasia (description/naming/reading) - 1(Mild to moderate aphasia) Initials: cp NIH Stroke Scale - NIH Stroke Score Date: 10/03/2022 Time: 20:55 Total Score = 3 10. Dysarthria (speech clarity - read or repeat words) - 0(Normal) 11. Extinction and Inattention (visual/tactile/auditory/spatial/personal) - 0(No abnormality) 1a. Level of Consciousness (LOC) - 0(Alert) 1b. Level of Consciousness (LOC) (Month \T\ Age) - 1(One) 1c. LOC Commands (Open \T\ Closes Eyes/Fiscal Clerk) - 0(Both) 2. Best Gaze (Lateral Gaze Paresis) - 0(Normal) 3. Visual Field Loss - 0(No visual loss) 4. Facial Palsy - 0(Normal) 5a. Left Arm: Motor (10-second hold) - 0(No drift) 5b. Right Arm: Motor (10-second hold) - 1(Drift) 6a. Left Leg: Motor (5-second hold - always test supine) - 0(No drift) 6b. Right Leg: Motor (5-second hold - always test supine) - 0(No drift) 7. Limb Ataxia (finger/nose \T\ heel/castañeda - test with eyes open) - 0(Absent) 8. Sensory Loss (pinprick arms/legs/face) - 0(Normal) 9. Best Language: Aphasia (description/naming/reading) - 1(Mild to moderate aphasia) Initials: jb4 Signatures: Dispatcher [employer] EDMS Serafin Allen PA PA cp Bryson, James RN RN jb4 Merry Szymanski Clarissa RN RN cm10 Corrections: (The following items were deleted from the chart) 19:02 19:01 Allergies: No Known Allergies; cm10 cm10 20:56 20:08 NIHSS Score: 3 jb4 jb4
--- NOTE | 2022-10-03 20:47 | EDPHYS ---
Physician Documentation [facility] Name: Marcell Platt Age: 51 yrs Sex: Male : 1970 Arrival Date: 10/03/2022 Time: 18:53 Bed 2 Private MD: ED Physician Roni Alonso HPI: 10/03 19:12 This 51 yrs old Male presents to ER via EMS with complaints of Altered cp Mental Status. 19:12 The patient presents with confusion, right side weakness. Possible causes: CVA or TIA, cp seizure, the patient has a known seizure history. Patient's baseline: history of CVA with left side weakness. Patient accompanied to ED by caregiver who reports noticing patient to be confused since last night and about 0800 this morning noticed right side weakness. Patient has not gotten up out of bed to use restroom like he is capable of today and dropped piece of pizza this evening he was holding with right hand. Historical: - Allergies: 19:01 PENICILLINS; cm10 - PMHx: 19:01 Seizure; Cerebrovascular accident; cm10 - Immunization history:: Adult Immunizations unknown. - Social history:: Smoking status: Patient/guardian denies using tobacco. ROS: 19:15 Constitutional: Negative for body aches, chills, fever, poor PO intake. cp 19:15 Cardiovascular: Negative for chest pain. cp 19:15 Respiratory: Negative for cough, shortness of breath, wheezing. 19:15 Eyes: Positive for visual disturbance, left eye redness, Negative for discharge. cp 19:15 ENT: Negative for drainage from ear(s), ear pain, sore throat, difficulty swallowing, difficulty handling secretions. 19:15 Neck: Negative for pain with movement, pain at rest, stiffness. 19:15 Abdomen/GI: Negative for abdominal pain, vomiting, diarrhea, constipation. 19:15 Neuro: Positive for altered mental status, weakness, of the right arm, Negative for headache, loss of consciousness, seizure activity, syncope. 19:15 All other systems are negative. Exam: 19:18 Constitutional: The patient appears in no acute distress, alert, awake, comfortable, cp non-diaphoretic, non-toxic, well developed, well nourished. 19:18 Head/Face: Normocephalic, atraumatic. cp 19:18 Eyes: Periorbital structures: appear normal, Pupils: equal, round, and reactive to light and accomodation, Extraocular movements: Conjunctiva: injected, in the left eye, Lids and lashes: appear normal, bilaterally. 19:18 ENT: External ear(s): are unremarkable, Ear canal(s): are normal, clear, TM's: dullness, bilaterally, Nose: is normal, Mouth: Lips: moist, Oral mucosa: pink and intact, moist, Posterior pharynx: is normal, airway is patent, no erythema, no exudate. 19:18 Neck: ROM/movement: is normal, is supple, without pain, no range of motions limitations, no meningismus. 19:18 Chest/axilla: Inspection: normal, Palpation: is normal, no crepitus, no tenderness. 19:18 Cardiovascular: Rate: normal, Rhythm: regular. 19:18 Respiratory: the patient does not display signs of respiratory distress, Respirations: normal, no use of accessory muscles, no retractions, labored breathing, is not present, Breath sounds: are clear throughout, no decreased breath sounds, no stridor, no wheezing. 19:18 Abdomen/GI: Inspection: abdomen appears normal, Palpation: abdomen is soft and non-tender, in all quadrants. 19:18 Back: pain, is absent, ROM is normal. 19:18 Skin: cellulitis, is not appreciated, no rash present. 19:18 Neuro: Orientation: to person, situation, Mentation: able to follow commands, slow to respond, Motor: moves all fours, weakness to right upper extremity. 20:03 ECG was reviewed by the Attending Physician. cp Vital Signs: 18:59 BP 121 / 89; Pulse 80; Resp 16; Temp 98.7; Pulse Ox 98% ; Weight 65.77 kg; Height 5 ft. cm10 9 in. ; 20:29 BP 129 / 90; Pulse 73; Resp 16; Pulse Ox 100% on R/A; jb4 21:26 BP 122 / 85; Pulse 75; Resp 16; Pulse Ox 98% on R/A; jb4 18:59 Body Mass Index 21.41 (65.77 kg, 175.26 cm) cm10 NIH Stroke Scale Scores: 19:10 NIHSS Score: 3 jb4 19:18 NIHSS Score: 4 cp 20:55 NIHSS Score: 3 jb4 MDM: 19:09 Patient medically screened. 19:20 ED course: patient is not a candidate for tnk. 20:35 Data reviewed: vital signs, nurses notes, lab test result(s), EKG, radiologic studies, cp CT scan, plain films. 20:35 Management of patient was discussed with the following: Plant Changer: DR Acosta will cp consult and wants patient admitted to hospitalist services. I considered the following discharge prescriptions or medication management in the emergency department Medications were administered in the Emergency Department. See MAR. Test considered but Not performed: MRI: brain. 10/03 19:10 Order name: Basic Metabolic Panel; Complete Time: 20:27 10/03 20:27 Interpretation: Normal except: GLUC 112. 10/03 19:10 Order name: CBC with Diff; Complete Time: 20:27 10/03 20:27 Interpretation: Normal except: RBC 4.29; HGB 13.0; HCT 39.5; MPV 7.5; MN% 19.5; MNA 1.4. 10/03 19:10 Order name: High Sensitivity Troponin; Complete Time: 20:27 10/03 20:27 Interpretation: Troponin HS 32.1; Reviewed. 10/03 19:10 Order name: Magnesium; Complete Time: 20:27 10/03 19:10 Order name: Protime (+inr); Complete Time: 20:27 10/03 19:10 Order name: Ptt, Activated; Complete Time: 20:27 10/03 19:10 Order name: AMMONIA; Complete Time: 20:27 10/03 19:10 Order name: Lactate w/ 2H reflex if indic.; Complete Time: 20:27 10/03 19:10 Order name: Urinalysis W/Microscopic 10/03 19:10 Order name: UDS 10/03 19:57 Order name: Glucose, Ancillary Testing; Complete Time: 20:27 EDMS 10/03 21:02 Order name: Depakote la1 10/03 19:10 Order name: CT Stroke Brain w/o Contrast; Complete Time: 20:27 10/03 19:10 Order name: Stroke CXR 1 View; Complete Time: 20:59 10/03 20:59 Interpretation: Report review. 10/03 19:25 Order name: Head angio; Complete Time: 20:27 EDMS 10/03 19:25 Order name: Neck Angio; Complete Time: 20:27 EDMS 10/03 19:10 Order name: EKG; Complete Time: 19:11 cp 10/03 19:10 Order name: Accucheck; Complete Time: 20:32 cp 10/03 19:10 Order name: Cardiac monitoring; Complete Time: 20:32 cp 10/03 19:10 Order name: EKG - Nurse/Tech; Complete Time: 20:32 cp 10/03 19:10 Order name: IV Saline Lock; Complete Time: 20:32 cp 10/03 19:10 Order name: Labs collected and sent; Complete Time: 20:32 cp 10/03 19:10 Order name: NPO; Complete Time: 20:32 cp 10/03 19:10 Order name: O2 Per Protocol; Complete Time: 20:32 cp 10/03 19:10 Order name: O2 Sat Monitoring; Complete Time: 20:32 cp 10/03 19:10 Order name: Stroke Swallow Screen; Complete Time: 20:32 cp EC:03 Rate is 73 beats/min. Rhythm is regular. [place] interval is normal. QRS interval is cp prolonged at 106 msec. QT interval is normal. T waves are Inverted in lead aVR. Interpreted by me. Reviewed by me. Administered Medications: 20:49 Drug: Aspirin PO Chewable Tablet 81 mg Route: PO; jb4 20:49 Drug: foLIC Acid IVPB 1 mg Route: IVPB; Site: right antecubital; jb4 20:49 Drug: Clopidogrel PO 75 mg Route: PO; jb4 20:49 Drug: Atorvastatin PO 40 mg Route: PO; jb4 20:49 Drug: Depakote PO 1000 mg Route: PO; jb4 Disposition Summary: 10/03/22 20:46 Hospitalization Ordered Hospitalization Status: Inpatient Admission cp Provider: Dusty Alonso cp Location: Telemetry/MedSurg (Inpatient) cp Condition: Stable cp Problem: new cp Symptoms: are unchanged cp Bed/Room Type: Standard cp Room Assignment: 228(10/03/22 21:08) cg Diagnosis - Altered mental status, unspecified cp - Weakness - right upper extremity cp Forms: - Medication Reconciliation Form cp - SBAR form cp NIH Stroke Scale - NIH Stroke Score Date: 10/03/2022 Time: 19:10 Total Score = 3 10. Dysarthria (speech clarity - read or repeat words) - 0(Normal) 11. Extinction and Inattention (visual/tactile/auditory/spatial/personal) - 0(No abnormality) 1a. Level of Consciousness (LOC) - 0(Alert) 1b. Level of Consciousness (LOC) (Month \T\ Age) - 1(One) 1c. LOC Commands (Open \T\ Closes Eyes/Compressor Operator Portable) - 0(Both) 2. Best Gaze (Lateral Gaze Paresis) - 0(Normal) 3. Visual Field Loss - 0(No visual loss) 4. Facial Palsy - 0(Normal) 5a. Left Arm: Motor (10-second hold) - 0(No drift) 5b. Right Arm: Motor (10-second hold) - 1(Drift) 6a. Left Leg: Motor (5-second hold - always test supine) - 0(No drift) 6b. Right Leg: Motor (5-second hold - always test supine) - 0(No drift) 7. Limb Ataxia (finger/nose \T\ heel/castañeda - test with eyes open) - 0(Absent) 8. Sensory Loss (pinprick arms/legs/face) - 0(Normal) 9. Best Language: Aphasia (description/naming/reading) - 1(Mild to moderate aphasia) Initials: jb4 NIH Stroke Scale - NIH Stroke Score Date: 10/03/2022 Time: 19:18 Total Score = 4 10. Dysarthria (speech clarity - read or repeat words) - 1(Mild to Moderate) 11. Extinction and Inattention (visual/tactile/auditory/spatial/personal) - 0(No abnormality) 1a. Level of Consciousness (LOC) - 0(Alert) 1b. Level of Consciousness (LOC) (Month \T\ Age) - 0(Both) 1c. LOC Commands (Open \T\ Closes Eyes/Compressor Operator Portable) - 0(Both) 2. Best Gaze (Lateral Gaze Paresis) - 0(Normal) 3. Visual Field Loss - 0(No visual loss) 4. Facial Palsy - 0(Normal) 5a. Left Arm: Motor (10-second hold) - 0(No drift) 5b. Right Arm: Motor (10-second hold) - 1(Drift) 6a. Left Leg: Motor (5-second hold - always test supine) - 0(No drift) 6b. Right Leg: Motor (5-second hold - always test supine) - 0(No drift) 7. Limb Ataxia (finger/nose \T\ heel/castañeda - test with eyes open) - 1(Present in one limb) 8. Sensory Loss (pinprick arms/legs/face) - 0(Normal) 9. Best Language: Aphasia (description/naming/reading) - 1(Mild to moderate aphasia) Initials: cp NIH Stroke Scale - NIH Stroke Score Date: 10/03/2022 Time: 20:55 Total Score = 3 10. Dysarthria (speech clarity - read or repeat words) - 0(Normal) 11. Extinction and Inattention (visual/tactile/auditory/spatial/personal) - 0(No abnormality) 1a. Level of Consciousness (LOC) - 0(Alert) 1b. Level of Consciousness (LOC) (Month \T\ Age) - 1(One) 1c. LOC Commands (Open \T\ Closes Eyes/Compressor Operator Portable) - 0(Both) 2. Best Gaze (Lateral Gaze Paresis) - 0(Normal) 3. Visual Field Loss - 0(No visual loss) 4. Facial Palsy - 0(Normal) 5a. Left Arm: Motor (10-second hold) - 0(No drift) 5b. Right Arm: Motor (10-second hold) - 1(Drift) 6a. Left Leg: Motor (5-second hold - always test supine) - 0(No drift) 6b. Right Leg: Motor (5-second hold - always test supine) - 0(No drift) 7. Limb Ataxia (finger/nose \T\ heel/castañeda - test with eyes open) - 0(Absent) 8. Sensory Loss (pinprick arms/legs/face) - 0(Normal) 9. Best Language: Aphasia (description/naming/reading) - 1(Mild to moderate aphasia) Initials: jb4 Addendum: 10/06/2022 07:31 Co-signature as Attending Physician, Roni Alonso MD I reviewed the patient's rn care provided by the Advanced Practice Provider and agree with the diagnosis and treatment plan. Signatures: Dispatcher [employer] Roni Edmonds MD MD rn Page, Corey, PA PA cp Garcia, Cindy, RN RN cg Bryson, James, RN RN jb4 Shereen Montalvo RN RN cm10 Corrections: (The following items were deleted from the chart) 10/03 19:02 19:01 Allergies: No Known Allergies; cm10 cm10 : 19:24 Head Angio+CT.RAD.BRZ ordered. EDMS EDMS 19:24 Neck Angio+CT.RAD.BRZ ordered. EDMS EDMS : 20:46 cp cg
[2022-10-03] MEDS ORDERED: ASPIRIN 81 MG CHEWABLE TABLET ONE (20:48)
[2022-10-03] MEDS ORDERED: DIVALPROEX DR 250 MG TAB PO ONE (20:49)
[2022-10-03] MEDS ORDERED: ATORVASTATIN 40 MG TAB ONE (20:49)
[2022-10-03] MEDS ORDERED: CLOPIDOGREL 75 MG TABLET ONE (20:49)
[2022-10-03] MEDS ORDERED: FOLIC ACID 5 MG/ML VIAL ONE (20:50)
--- NOTE | 2022-10-03 21:26 | P.HP ---
Certification for Inpatient Patient admitted to: Inpatient With expected LOS: >2 Midnights Patient will require the following post-hospital care: None Practitioner: I am a practitioner with admitting privileges, knowledge of patient current condition, hospital course, and medical plan of care. Services: Services provided to patient in accordance with Admission requirements found in Title 42 Section 412.3 of the Code of Federal Regulations Patient History Date of Service: 10/03/22 Reason for admission: Right-sided weakness, gait instability, altered mental status History of Present Illness: 51-year-old male with history of seizure disorder, schizophrenia, possible previous CVA presents emergency department with chief complaint of altered mental status, gait instability, right-sided weakness. He symptoms started in the last 24 to 48 hours, he reports that when he went to bed on 10/02/2022 at around 2100 he felt normal when he woke up in the morning on 10/03/2022 he noted he was having some visual disturbances including hallucinations, possible right- sided weakness as he dropped a slice of pizza out of his right hand, his family also noted he has been having difficulty ambulating compared to his baseline the past 24 to 48 hours, he is unable to walk without assistance currently. He was evaluated in the emergency department his CT scan of his head without contrast was negative for acute findings CT head neck angio negative for large vessel occlusion. His labs were unremarkable, Depakote level is pending. ED prior wishes to admit for evaluation of gait instability, altered mental status, right-sided weakness. Allergies No Known Allergies Allergy (Unverified 06/23/21 02:47) Home Medications: levETIRAcetam [Keppra Tab] 500 mg PO BID #60 tab 06/23/21 - Past Medical/Surgical History -: Seizure disorder -: CVA -: Schizophrenia Past Surgical History: Unable to obtain Psychosocial/ Personal History: Patient was at home with his family, they are having difficulty caring for him. - Family History Family History: Reviewed- Non-Contributory - Social History Smoking Status: Never smoker Alcohol use: No CD- Drugs: No Caffeine use: Yes Place of Residence: Home Review of Systems 10-point ROS is otherwise unremarkable Neurological: Weakness, Incoordination, Other (Visual hallucinations) Physical Examination - Physical Exam General: Alert, In no apparent distress, Oriented x3 HEENT: Atraumatic, PERRLA, Mucous membr. moist/pink, EOMI, Sclerae nonicteric Neck: Supple, 2+ carotid pulse no bruit, No LAD, Without JVD or thyroid abnormality Respiratory: Clear to auscultation bilaterally, Normal air movement Cardiovascular: No edema, Regular rate/rhythm, Normal S1 S2 Capillary refill: <2 Seconds Gastrointestinal: Normal bowel sounds, No tenderness Musculoskeletal: No tenderness Integumentary: No rashes Neurological: Normal speech, Normal strength at 5/5 x4 extr, Normal tone, Sensation intact, Normal affect, Other (Right arm drift present, qtdrfh-[id number] test abnormal.) - Studies Laboratory Data (last 24 hrs) 10/03/22 19:46: PT 12.0, INR 1.09, APTT 35.1 10/03/22 19:46: WBC 7.20, Hgb 13.0 L, Hct 39.5 L, Plt Count 252 10/03/22 19:46: Sodium 136, Potassium 3.7, BUN 18, Creatinine 0.95, Glucose 112 H, Magnesium 2.3 Assessment and Plan - Plan Assessment: Right-sided weakness, gait instability-history of CVA Altered mental status, visual hallucinations Seizure disorder Schizophrenia Plan: Right-sided weakness, gait instability-history of CVA CT head without contrast negative for acute findings, CT head and neck angiogram negative for large vessel occlusion. He does have right arm drift, abnormal bvixzp-ex-djhn test. NIH currently 3. Family reports difficulty with ambulation increasing over the course of last 24 to 48 hours requiring much more assistance than normal, he appears more confused than normal. Plan for MRI, PT consult, will also likely need social psychologist consult as family feels they are unable to care for him for home although his symptoms have significant worsened over the course of the last 24 to 40 hours, will search for reversible causes. Altered mental status, visual hallucinations Unclear etiology possibly related to acute CVA, also pending is his Depakote level which we will follow-up on. Seizure disorder Check Depakote level, restart if therapeutic or subtherapeutic Schizophrenia Continue home meds. DVT PPX: Lovenox Code status: Full Discharge Plan: Home Plan to discharge in: 48 Hours - Advance Directives Does patient have a Living Will: No Does patient have a Durable POA for Healthcare: No - Code Status/Comfort Care Code Status Assessed: Yes (Full code) Critical Care: No Time Spent Managing Pts Care (In Minutes): 55
[2022-10-03 22:46] VITALS: BMI 25.5
[2022-10-04 02:00] LABS: Urine Bacteria None Seen /HPF (<20); Urine Bilirubin NEGATIVE (Negative); Urine Blood Negative (Negative); Urine Clarity Clear (Clear); Urine Color Yellow (Yellow); Urine Glucose NEGATIVE (Negative); Urine Mucus Slight /HPF (None Seen); Urine Protein 1+ (Negative); Urine RBC <5 /HPF (None Seen); Urine Urobilinogen 1+ (Normal); Urine pH 6.5 (5.0-7.0)
[2022-10-04 02:11] LABS: Barbiturates NEGATIVE (NEGATIVE); Benzodiazepines NEGATIVE (NEGATIVE); Cocaine NEGATIVE (NEGATIVE); METHAMPHETAM NEGATIVE (NEGATIVE); Methadone NEGATIVE (NEGATIVE); Opiates NEGATIVE (NEGATIVE); Phencyclidine NEGATIVE (NEGATIVE); THC Cannibis NEGATIVE (NEGATIVE)
[2022-10-04 02:44] LABS: Specific Gravity > 1.030 (1.005-1.030)
[2022-10-04] MEDS ORDERED: ONDANSETRON 4 MG/2 ML VIAL IV PRN (05:27)
[2022-10-04 06:26] LABS: Absolute Lymphocytes (CBC) 2.2 K/uL (0.7-4.9); Hematocrit 40.9 % (39.6-49.0); Lymphocytes % 33.5 % (15.3-44.8); MPV 7.8 fL (7.6-11.3); RBC Red Blood Cell Count 4.49 M/uL (4.33-5.43)
[2022-10-04 06:47] LABS: Potassium 3.9 mEq/L (3.5-5.1)
[2022-10-04 06:48] LABS: Thyroid Stimulating Hormone 4.7 uIU/mL (0.358-3.740)
--- NOTE | 2022-10-04 07:28 | P.PN ---
Date of Service: 10/04/22 Subjective: reports being more confused, +decreased coordination worsening in last ~2-3 days family feels like hes unable to complete basic functional tasks around at home, whereas 2 weeks ago he could +visual hallucinations continue, no blurred/double vision; denies trouble swallowing, no slurred speech unable to walk without assistance; fall risk some difficulty following commands during exam ROS: 10 point ROS as noted above, otherwise negative Physical Exam: GEN: Alert, orientedx2, NAD HEENT: Normal conjunctiva, sclera anicteric CV: Regular rate and rhythm, no edema Pulm: Nonlabored respirations on room air, clear bilaterally ABD: Soft, nontender, nondistended MSK: No joint tenderness Integumentary: No rashes Neuro: Normal speech, normal affect, L-sided mild weakness with mild incoordination(~baseline per family), [id number] limited secondary to poor vision, mild arm drift intermittently mixed up left vs right leg, and later moved leg when asked to move arm NIH score: 3 vitals reviewed Problem List: Right-sided weakness, gait instability history of CVA Altered mental status, visual hallucinations Seizure disorder anterior neck - Complex cystic Mass, 3.6 x 2.3 cm Schizophrenia Right-sided weakness, gait instability-history of CVA difficulty with ambulation increasing over the course of last 24 to 48 hours requiring much more assistance than normal, he appears more confused than normal. In the ED, noted to have right arm drift, abnormal [id number] test. CT Brain(10/03): negative for acute findings; 3 cm area of diminished density in the left parietal region may be related to prior infarct CTA head/neck(10/03): negative for large vessel occlusion. 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 VTE: Lovenox Code: Full Dispo: may need SNF
--- NOTE | 2022-10-04 07:56 | RAD REPORT ---
EXAM DESCRIPTION: US - Thyroid Para Parotid Gland - 10/04/2022 6:50 am CLINICAL HISTORY: Neck mass COMPARISON: None FINDINGS: The right lobe of the thyroid measures 4.5 x 1.2 x 1.5 centimeters. The left lobe of the thyroid measures 3.9 x 1.3 x 1.3 centimeters. Normal echotexture of each lobe of the thyroid gland 3.6 x 2.3 centimeter complex cystic mass lies about 2 centimeters superior to the superior aspect of thyroid gland within the anterior neck with its epicenter to the left of midline. IMPRESSION: 3.6 centimeter complex cystic mass anterior thyroid gland most likely a thyroglossal rey t cyst
[2022-10-04] MEDS: CLOPIDOGREL 75 MG TABLET PO SCH (08:32)
[2022-10-04] MEDS: DIVALPROEX DR 500MG TAB PO SCH ×2 (08:32→20:22)
[2022-10-04] MEDS: FOLIC ACID 1 MG TABLET PO SCH (08:32)
[2022-10-04] MEDS: ENOXAPARIN 40 MG/0.4 ML SQ SCH (08:32)
[2022-10-04] MEDS: ASPIRIN EC 81 MG TAB PO SCH (08:33)
[2022-10-04] MEDS: QUETIAPINE 25 MG TAB PO SCH (20:21)
[2022-10-04] MEDS: ATORVASTATIN 40 MG TAB PO SCH (20:21)
[2022-10-05 07:01] LABS: Absolute Lymphocytes (CBC) 1.9 K/uL (0.7-4.9); Hematocrit 40.5 % (39.6-49.0); MCV 90.8 fL (80-100); MPV 7.6 fL (7.6-11.3); RBC Red Blood Cell Count 4.45 M/uL (4.33-5.43)
--- NOTE | 2022-10-05 07:11 | P.PN ---
Date of Service: 10/05/22 Subjective: doing okay today no new numbness / weakness; incoordination ~same, vision ~same agitated overnight, improved today ROS: 10 point ROS as noted above, otherwise negative Physical Exam: GEN: Alert, orientedx2, NAD HEENT: Normal conjunctiva, sclera anicteric CV: Regular rate and rhythm, no edema Pulm: Nonlabored respirations on room air, clear bilaterally ABD: Soft, nontender, nondistended MSK: No joint tenderness Integumentary: No rashes Neuro: Normal speech, normal affect, L-sided mild weakness with mild incoordination(~baseline per family), [id number] limited secondary to poor vision, mild arm drift vitals reviewed Problem List: Right-sided weakness, gait instability history of CVA Altered mental status, visual hallucinations Seizure disorder anterior neck - Complex cystic Mass, 3.6 x 2.3 cm Schizophrenia Right-sided weakness, gait instability history of CVA difficulty with ambulation increasing over the course of last 24 to 48 hours requiring much more assistance than normal, he appears more confused than normal. In the ED, noted to have right arm drift, abnormal xagkqz-so-hlmt test. CT Brain(10/03): negative for acute findings; 3 cm area of diminished density in the left parietal region may be related to prior infarct CTA head/neck(10/03): negative for large vessel occlusion. 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 VTE: Lovenox Code: Full Dispo: may need SNF
[2022-10-05 07:23] LABS: Potassium 3.6 mEq/L (3.5-5.1)
[2022-10-05] MEDS: ENOXAPARIN 40 MG/0.4 ML SQ SCH (08:15)
[2022-10-05] MEDS: ASPIRIN EC 81 MG TAB PO SCH (08:15)
[2022-10-05] MEDS: DIVALPROEX DR 500MG TAB PO SCH ×2 (08:15→20:25)
[2022-10-05] MEDS: CLOPIDOGREL 75 MG TABLET PO SCH (08:15)
[2022-10-05] MEDS: FOLIC ACID 1 MG TABLET PO SCH (08:15)
[2022-10-05 10:11] LABS: Blood Morphology Comment NOT SEEN (NOT SEEN); Platelet Estimate ADEQ
[2022-10-05] MEDS: ATORVASTATIN 40 MG TAB PO SCH (20:24)
[2022-10-05] MEDS: QUETIAPINE 25 MG TAB PO SCH (20:25)
--- NOTE | 2022-10-06 06:56 | P.PN ---
Date of Service: 10/06/22 Subjective: doing okay today no new numbness / weakness; no change in vision Incoordination remains ~ same +hallucinations continue Worked with PT yesterday ROS: 10 point ROS as noted above, otherwise negative Physical Exam: GEN: Alert, orientedx3, NAD HEENT: Normal conjunctiva, sclera anicteric CV: Regular rate and rhythm, no edema Pulm: Nonlabored respirations on room air, clear bilaterally ABD: Soft, nontender, nondistended MSK: No joint tenderness Integumentary: No rashes Neuro: Normal speech, normal affect, L-sided mild weakness with mild incoordination(~baseline per family), [id number] limited secondary to poor vision, mild R arm drift, R sided incoordination vitals reviewed Problem List: Right-sided weakness, gait instability history of CVA Altered mental status, visual hallucinations Seizure disorder anterior neck - Complex cystic Mass, 3.6 x 2.3 cm Schizophrenia Right-sided weakness, gait instability history of CVA difficulty with ambulation increasing over the course of last 24 to 48 hours requiring much more assistance than normal, he appears more confused than normal. In the ED, noted to have right arm drift, abnormal wbpmyr-hx-wbyc test. CT Brain(10/03): negative for acute findings; 3 cm area of diminished density in the left parietal region may be related to prior infarct CTA head/neck(10/03): negative for large vessel occlusion. 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 VTE: Lovenox Code: Full Dispo: may need SNF
[2022-10-06 07:50] LABS: Hematocrit 42.2 % (39.6-49.0); MPV 7.7 fL (7.6-11.3); RBC Red Blood Cell Count 4.64 M/uL (4.33-5.43)
[2022-10-06 08:06] LABS: Potassium 4.2 mEq/L (3.5-5.1)
[2022-10-06] MEDS: ENOXAPARIN 40 MG/0.4 ML SQ SCH (08:42)
[2022-10-06] MEDS: CLOPIDOGREL 75 MG TABLET PO SCH (08:43)
[2022-10-06] MEDS: FOLIC ACID 1 MG TABLET PO SCH (08:43)
[2022-10-06] MEDS: DIVALPROEX DR 500MG TAB PO SCH ×2 (08:43→21:26)
[2022-10-06] MEDS: ASPIRIN EC 81 MG TAB PO SCH (08:43)
--- NOTE | 2022-10-06 14:35 | RAD REPORT ---
EXAM DESCRIPTION: MRI - Brain Wo Cont - 10/06/2022 2:09 pm CLINICAL HISTORY: Right sided weakness, gait instablity COMPARISON: Head angio dated 10/03/2022; Ct Stroke Brain Wo Cont dated 10/03/2022; Head Brain Wo Cont dated 06/22/2021; Neck Angio dated 10/03/2022 TECHNIQUE: Sagittal T1-weighted images were obtained along with PD/heavily T2-weighted and T2-FLAIR images. Axial DWI and ADC mapping sequences were also obtained along with coronal heavily T2-weighted images were obtained. FINDINGS: Acute left parietal cortical infarct. There is no edema or shift of midline structures. No extra-axial fluid collections. Signal voids are seen as a normal finding in the major intracranial v essels. Advanced T2/FLAIR hyperintense confluent signal in the subcortical and deep white matter Age advanced cerebral atrophy. Ventriculomegaly likely related to the degree of atrophy. Mastoid air cells and paranasal sinuses are clear. IMPRESSION: 1. Acute left parietal lobe cortical infarct. 2. Severe age advanced cerebral volume loss. Widespread confluent T2/FLAIR hyperintensity within the periventricular and subcortical white matter could be due to chronic small vessel ischemic changes.
[2022-10-06] MEDS: ATORVASTATIN 40 MG TAB PO SCH (21:26)
[2022-10-06] MEDS: QUETIAPINE 25 MG TAB PO SCH (21:26)
[2022-10-07 06:04] VITALS: O2SAT 98
[2022-10-07] MEDS: ENOXAPARIN 40 MG/0.4 ML SQ SCH (10:16)
[2022-10-07] MEDS: ASPIRIN EC 81 MG TAB PO SCH (10:16)
[2022-10-07] MEDS: DIVALPROEX DR 500MG TAB PO SCH (10:17)
[2022-10-07] MEDS: CLOPIDOGREL 75 MG TABLET PO SCH (10:17)
[2022-10-07] MEDS: FOLIC ACID 1 MG TABLET PO SCH (10:17)
[2022-10-07 14:39] LABS: SARS-CoV-2 Antigen Rapid Res Negative (Negative)
--- NOTE | 2022-10-07 15:05 | EKG ---
Test Date: 2022-10-03 Test Time: 19:57:59 Test Evaluator: MEASUREMENT RESULTS: Intervals: Rate: 73 PA: 182 QRSD: 106 QT: 394 QTc: 434 Abbott: P: 33 PA: 182 QRS: 3 T: 14 INTERPRETIVE STATEMENTS: Normal sinus rhythm Normal ECG Compared to ECG 06/22/2021 13:58:37 No significant changes Electronically Signed On 10-07-22 14:58:31 CDT by Nahum Ying
--- NOTE | 2022-10-07 15:42 | P.DS ---
Admission Date: 10/03/22 Discharge Date: 10/07/22 Disposition: TRANSFER TO [facility] Discharge Condition: FAIR Reason for Admission: Right-sided weakness, gait instability, altered mental status Brief History of Present Illness: 51-year-old male with history of seizure disorder, schizophrenia, possible previous CVA presented to the emergency department with chief complaint of altered mental status, gait instability, right-sided weakness. He symptoms started in the last 24 to 48 hours prior to presentation. He reported that when he went to bed on 10/02/2022 at around 2100 he felt normal when he woke up in the morning on 10/03/2022 he noted he was having some visual disturbances including hallucinations, possible right-sided weakness as he dropped a slice of pizza out of his right hand. His family also noted he has been having difficulty ambulating compared to his baseline. He is unable to walk without assistance. He was evaluated in the emergency department and his CT scan of his head without contrast was negative for acute findings. CT head neck angio negative for large vessel occlusion. His labs were unremarkable,. Patient was hospitalized for further evaluation and management of gait instability, altered mental status, right-sided weakness. Hospital Course: Diagnosis Right-sided weakness, gait instability history of CVA Altered mental status, visual hallucinations Seizure disorder anterior neck - Complex cystic Mass, 3.6 x 2.3 cm Schizophrenia Right-sided weakness, gait instability history of CVA Worsening difficulty with ambulation. CT Brain(10/03): negative for acute findings; 3 cm area of diminished density in the left parietal region may be related to prior infarct CTA head/neck(10/03): negative for large vessel occlusion. MRI brain acute left parietal stroke Telemetry was unremarkable. PT/Speech consulted. Patient had no trouble with swallowing. Maximum assist during PT. Patient started on plavix, statin, folic acid and aspirin. Continued Depakote Seen by neuro-Dr. Acosta Altered mental status, visual hallucinations Likely related to acute CVA. Seizure disorder Resumed home dose Depakote. 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 Vital Signs/Physical Exam: Temp Pulse Resp BP Pulse Ox 98.6 F 75 16 110/78 97 10/07/22 12:00 10/07/22 12:00 10/07/22 12:00 10/07/22 12:00 10/07/22 12:00 General: Alert, In no apparent distress Laboratory Data at Discharge: WBC 7.90 thou/uL (4.3-10.9) 10/06/22 07:25 Hgb 13.9 g/dL (13.6-17.9) 10/06/22 07:25 Hct 42.2 % (39.6-49.0) 10/06/22 07:25 Plt Count 279 thou/uL (152-406) 10/06/22 07:25 PT 12.0 SECONDS (9.5-12.5) 10/03/22 19:46 INR 1.09 10/03/22 19:46 APTT 35.1 SECONDS (24.3-36.9) 10/03/22 19:46 Sodium 139 mEq/L (136-145) D 10/06/22 07:25 Potassium 4.2 mEq/L (3.5-5.1) D 10/06/22 07:25 BUN 18 mg/dL (7-18) 10/06/22 07:25 Creatinine 0.97 mg/dL (0.70-1.30) 10/06/22 07:25 Glucose 101 mg/dL (74-106) 10/06/22 07:25 Magnesium 2.3 mg/dL (1.6-2.4) 10/03/22 19:46 Triglycerides 77 mg/dL (<150) 10/04/22 06:07 Cholesterol 156 mg/dL (<200) 10/04/22 06:07 HDL Cholesterol 33 mg/dL (40-60) L 10/04/22 06:07 Cholesterol/HDL Ratio 4.73 10/04/22 06:07 Home Medications: Divalproex ER [Depakote *ER] 500 mg PO BID 10/04/22 Aspirin 2 tab PO DAILY #60 tab.chew 10/07/22 Atorvastatin Calcium [Lipitor] 40 mg PO BEDTIME tab 10/07/22 Clopidogrel Bisulfate [Plavix*] 75 mg PO DAILY 10/07/22 Folic Acid 1 mg PO DAILY #30 tab 10/07/22 Quetiapine [Seroquel*] 25 mg PO BID tab 10/07/22 New Medications: Aspirin 2 tab PO DAILY #60 tab.chew Folic Acid 1 mg PO DAILY #30 tab Diet: AHA Activity: Fall precautions Followup: Unknown,U [Primary Care Provider] - Time spent managing pt's care (in minutes): 38
[2022-10-07 16:27] VITALS: BP 118/74; TEMP 98.1
--- NOTE | 2022-10-07 23:17 | CON ---
Reason For Consultation: Consultation called because of new stroke. History Of Present Illness: Mr. Platt is a 51-year-old, right-handed, patient with epilep sy, schizophrenia, prior stroke, and episodes of confusion. The reason for hospitalization was new o nset right-sided weakness and tunnel vision that began about 24-48 hours after hospitalization. He w opal up initially on the October 02 around 11:00 and felt normal, but then by the morning on the , he had visual disturbance, right-sided weakness, and some visual hallucinations. He was dropping thing s such as pizza from his right hand and had difficulty ambulating due to right-sided weakness. At [facility], CT scan was negative for any acute ischemic or hemorrhagic findings. He did have Depakote blood level checked, which was not elevated. His brain MRI done on did identify an acu te left parietal lobe cortical infarct and severe age advanced cerebral volume loss with widespread T 2 and FLAIR hyperintensities within the periventricular and subcortical white matter due to chronic s mall vessel ischemic disease. The patient's findings did correlate with visual disturbance and right -sided weakness. His Depakote level was 81.6, which is in the therapeutic range and drug screen was negative. COVID testing was negative. Complete blood count differential was normal and his basic me tabolic panel was unremarkable. Calcium was slightly low at 8.4 and chloride elevated to 108 with am monia level of 16 and TSH slightly elevated to 4.7, free T4 was normal. He did have stroke while you ng. Labs ordered and are pending. Patient has been accepted to [facility] for physical, occupational, and speech therapy following his acute stroke. Past Medical History: Stroke, schizophrenia, localization-related complex partial seizures. Allergies: NO KNOWN DRUG ALLERGIES. Home Medications: Keppra 500 mg twice daily. Family History: Noncontributory. Social History: The patient lives at home with family who is caring for him. No alcohol, tobacco, o r IV drug use. Review of Systems: He has right-sided weakness, tunnel type vision, some disorientation, difficulty getting thoughts and words out. There was prior left-sided weakness from his prior stroke. Physical Examination: Vital Signs: Blood pressure 118/74, pulse 79, respiratory rate 16, temperature 98.1, oxygen saturati on 98% on room air. Weight 173 pounds, height 5 feet 9 inches, BMI 25.6. General: Mr. Platt is resting in bed. He appears in no acute distress. HEENT: He is normocephalic, atraumatic. Sclerae anicteric. Oropharynx pink and moist. Neck: Supple. Chest: Clear. Heart: Regular. Extremities: Show no edema or cyanosis. Neurological: Patient has a tunneling of vision with loss of peripheral vision bilaterally. Otherwi se, cranial nerves show no significant abnormalities. Motor examination: The right upper extremity and right lower extremity around 4/5 strength proximally, distally. Decreased to light touch tempera ture in the right upper and lower compared to the left upper and lower extremities. He also has weak ness in the left side, which is similar to the right. Reflexes symmetric. With his gait, he did not attempt ambulation due to fear of falling. He is willing to work with physical therapy after he is transferred to [facility]. Progress Towards Rehabilitation Goals: Mr. Platt is a 51-year-old patient with multiple medical pr oblems including multiple strokes while young, schizophrenia, dyslipidemia, and epilepsy. Plan: 1.Aspirin 81 mg daily, Lipitor 40 mg at bedtime, Plavix 75 mg daily. Continue Depakote 1000 mg twic e daily, folic acid 1 mg daily, Seroquel 25 mg at bedtime. 2.He may be discharged to [facility] for physical, occupational, and speech therapy. 3.Follow up in Dr. Acosta's office 1 month later. DAISY/LI Voice ID: [id number] Report ID: [id number]
--- NOTE | 2022-10-08 08:41 | ECHO ---
HEIGHT: 5 ft 9 in WEIGHT: 173 lb 3.2 oz DATE OF STUDY: 10/07/[address]: Ruben Aldana NP 2-DIMENSIONAL: YES M.MODE: YES DOPPLER: YES COLOR FLOW: YES TDS: PORTABLE: YES DEFINITY: BUBBLE STUDY: DIAGNOSIS: STROKE CARDIAC HISTORY: CATHERIZATION: NO SURGERY: NO PROSTHETIC VALVE: NO PACEMAKER: NO MEASUREMENTS (cm) DIASTOLIC (NORMALS) SYSTOLIC (NORMALS) IVSd 1.1 (0.6-1.2) LA Diam 2.2 (1.9-4.0) LVEF 66% LVIDd 4.2 (3.5-5.7) LVIDs 2.7 (2.0-3.5) %FS 36% LVPWd 1.1 (0.6-1.2) Ao Diam 2.7 (2.0-3.7) 2 DIMENSIONAL ASSESSMENT: RIGHT ATRIUM: NORMAL LEFT ATRIUM: NORMAL RIGHT VENTRICLE: NORMAL LEFT VENTRICLE: NORMAL TRICUSPID VALVE: NORMAL MITRAL VALVE: NORMAL PULMONIC VALVE: NORMAL AORTIC VALVE: NORMAL PERICARDIAL EFFUSION: NONE AORTIC ROOT: NORMAL LEFT VENTRICULAR WALL MOTION: NORMAL DOPPLER/COLOR FLOW: NORMAL COMMENTS: 1. NORMAL LEFT VENTRICULAR EJECTION FRACTION 60-65% 2. NORMAL WALL MOTION 3. NORMAL DIASTOLIC FUNCTION TECHNOLOGIST: NE ARREOLA
[2022-10-11 17:13] LABS: Prothrombin Gene Analysis Test NEGATIVE
== END 2022-10-07 16:48 | DRG 65 ==
LOC: ER 18:53 → ERHOLD 21:08 → 2ND 21:23
PROVIDERS: ADMIT Hospitalist; ATTEND Internal Medicine
DX: I63.9 Cerebral infarction, unspecified (principal); G81.91 Hemiplegia, unspecified affecting right dominant side; F20.9 Schizophrenia, unspecified; G40.909 Epilepsy, unspecified, not intractable, without status epilepticus; H53.9 Unspecified visual disturbance; R41.82 Altered mental status, unspecified; R29.703 NIHSS score 3; Z88.0 Allergy status to penicillin; Z79.82 Long term (current) use of aspirin; Z79.02 Long term (current) use of antithrombotics/antiplatelets; Z79.899 Other long term (current) drug therapy; Z20.822 Contact with and (suspected) exposure to COVID-19
CPT/HCPCS: 36415; 70450; 70496; 70498; 70551; 71045; 76536; 80048; 80061; 80164; 80307; 81001; 81240; 81241; 82140; 82565; 82947; 83090; 83605; 83735; 84439; 84443; 84484; 85025; 85301; 85302; 85305; 85306; 85610; 85730; 87811; 92610; 93005; 93306; 96374; 97110; 97116; 97163; 97530; 99285; J1650; Q9967

== ENCOUNTER 2023-01-16 08:59 | Observation (INO) | payer OTHER, SELFPAY ==
--- OUTSIDE RECORDS SUMMARY | 2023-01-16 09:02 | XMS REPORT | Continuity of Care Document ---
:[address] [facility] t Address [address] [place] [address] [place] [id number] Care Team Providers Name Role Phone Pcp, [...] Date Date Clinician Penicill Propensi Active Other Lo ins ty to 07-02 Health adverse 00:00: reaction 00 s to drug Social History Social Habit Start Date Stop Date Quantity Comments Source Gender identity aWlly Bishop alth Sexual orientation [facility] Sex Assigned At [birth year] [facility] 00:00:00 00:00:00 Medications This patient has no known medications. Procedures This patient has no known procedures. Plan of Care Planned Activity Planned Date Details Comments Source Future Scheduled Test 2022-12-14 00:00:00 IMM Influenza [facility] Seasonal (>/= 19 yrs) [code = IMM Influenza Seasonal (>/= 19 yrs)] Future Scheduled Test 2022-11-14 00:00:00 IMM Influenza [facility] Seasonal (>/= 19 yrs) [code = IMM Influenza Seasonal (>/= 19 yrs)] Future Scheduled Test 2020 00:00:00 Screening for [facility] malignant neoplasm of colon (procedure) [code = 659312006] Future Scheduled Test 2020 00:00:00 Screening for [facility] malignant neoplasm of colon (procedure) [code = 175418974] Future Scheduled Test 1971-04-27 00:00:00 COVID-19 Vaccine (#1) [facility] [code = COVID-19 Vaccine (#1)] Future Scheduled Test 1971-04-27 00:00:00 COVID-19 Vaccine (#1) [facility] [code = COVID-19 Vaccine (#1)] Encounters Start End Encounter Admission Attending Care Care Encounter Source Date/Time Date/Time Type Type Clinicians Facility Department ID 2022-09-30 2022-09-30 Outpatient [facility] [id number] 09:55:13 09:55:13 [id number] F Clarence 2021-07-02 2021-07-03 Emergency [facility] [id number] Lo 15:58:00 03:36:00 Health Results This patient has no known results.
[2023-01-16 09:37] LABS: Absolute Lymphocytes (CBC) 1.4 K/uL (0.7-4.9); Hematocrit 44.2 % (39.6-49.0); Lymphocytes % 16.1 % (15.3-44.8); MCV 92.6 fL (80-100); MPV 7.8 fL (7.6-11.3); Platelets 211 thou/uL (152-406); RBC Red Blood Cell Count 4.77 M/uL (4.33-5.43)
--- NOTE | 2023-01-16 09:40 | RAD REPORT ---
EXAM DESCRIPTION: CT - Ct Stroke Brain Wo Cont - 01/16/2023 9:33 am CLINICAL HISTORY: STROKE ALERT COMPARISON: Head angio dated 10/03/2022; Ct Stroke Brain Wo Cont dated 10/03/2022; Brain Wo Cont dated 10/06/2022 TECHNIQUE: All CT scans are performed using dose optimization technique as appropriate and may inclu de automated exposure control or mA/KV adjustment according to patient size. FINDINGS: No intracranial hemorrhage, hydrocephalus or extra-axial fluid collection.No areas of brai n edema or evidence of midline shift. Remote bilateral parietal lobe cortical infarcts. Severe chroni c small vessel ischemic changes. Age advanced cerebral atrophy. The paranasal sinuses and mastoids are clear. The calvarium is intact. IMPRESSION: No acute intracranial abnormality. Remote parietal lobe infarcts. Severe age advanced c erebral atrophy and severe chronic small vessel ischemic changes. Discussed with Dr. Alonso by Dr. Neri at 0919 on 01/16/23
[2023-01-16 09:41] LABS: Protime INR 1.03
[2023-01-16] MEDS ORDERED: LORazepam 2 MG/ML VIAL ONE ×2 (09:43→11:54)
--- NOTE | 2023-01-16 09:43 | RAD REPORT ---
EXAM DESCRIPTION: CT - Neck Angio - 01/16/2023 9:33 am CLINICAL HISTORY: vision loss COMPARISON: Neck Angio dated 10/03/2022 TECHNIQUE: CT angiography of the neck vessels was performed with maximum intensity reformatted image s. CAROTID STENOSIS REFERENCE USING NASCET CRITERIA: Mild - <50% stenosis. Moderate - 50-69% stenosis. Severe - 70-94% stenosis. Near occlusion - 95-99% stenosis. Occluded - 100% stenosis. All CT scans are performed using dose optimization technique as appropriate and may include automated exposure control or mA/KV adjustment according to patient size. FINDINGS: A left aortic arch is identified with normal three vessel configuration of the great vesse ls. No significant flow abnormality is seen of the common carotid bilaterally. No significant stenosis is identified involving the cervical segments of both internal carotid arteri es. Normal flow is seen within both vertebral arteries. Note that there was some motion during the original scan. A second scan was obtained through the neck which demonstrated the vessels better but did have some venous contamination. Fluid collection in th e anterior neck measuring approximately 3.2 cm consistent with a thyroglossal duct cyst. IMPRESSION: No significant flow abnormality of the neck vessels is identified.
--- NOTE | 2023-01-16 09:44 | RAD REPORT ---
EXAM DESCRIPTION: CT - Head angio - 01/16/2023 9:33 am CLINICAL HISTORY: VISUAL DISTURBANCES COMPARISON: Ct Stroke Brain Wo Cont dated 01/16/2023; Head angio dated 10/03/2022 TECHNIQUE: CT angiography of the head was performed with maximum intensity reformatted images. 3D ma ximum intensity pixel (MIP) reconstructions were created All CT scans are performed using dose optimization technique as appropriate and may include automated exposure control or mA/KV adjustment according to patient size. FINDINGS: Anterior circulation: No aneurysm or large vessel occlusion. No hemodynamically significant stenosis. No arteriovenous malf ormation identified. Posterior circulation: No aneurysm or large vessel occlusion. No hemodynamically significant stenosis. No arteriovenous malf ormation identified. IMPRESSION: No significant flow abnormality is detected.
[2023-01-16 09:50] LABS: Potassium 3.8 mEq/L (3.5-5.1)
--- NOTE | 2023-01-16 09:54 | RAD REPORT ---
EXAM DESCRIPTION: RAD - Chest Single View - 01/16/2023 9:43 am CLINICAL HISTORY: vision loss COMPARISON: Chest Single View dated 10/03/2022; Chest Single View dated 06/22/2021 FINDINGS: Lines: None. Lungs: No evidence of edema or pneumonia. Pleural: No significant pleural effusions or pneumothorax. Cardiac: The heart size is within normal limits. Mediastinum: Within normal limits. Bones: No acute fractures. Other: None IMPRESSION: No acute cardiopulmonary disease.
[2023-01-16] MEDS ORDERED: TENECTEPLASE 50 MG/10 ML VIAL IV ONE (10:05)
[2023-01-16] MEDS ORDERED: FOLIC ACID 5 MG/ML VIAL ONE (10:06)
--- NOTE | 2023-01-16 10:20 | ER ---
Nurse's Notes [facility] Name: Marcell Platt Age: 52 yrs Sex: Male : 1970 Arrival Date: 01/16/2023 Time: 08:59 Bed 2 Private MD: Diagnosis: Cerebral infarction, unspecified;Sudden visual loss, bilateral Presentation: 01/16 09:00 Chief complaint: EMS states: Pt is from [facility], when staff came to serve breakfast rs5 this morning he reported he couldn't see out of both eyes. Coronavirus screen: At this time, the client does not indicate any symptoms associated with coronavirus-19. Ebola Screen: No symptoms or risks identified at this time. Initial Sepsis Screen: Does the patient meet any 2 criteria? No. Patient's initial sepsis screen is negative. Does the patient have a suspected source of infection? No. Patient's initial sepsis screen is negative. Risk Assessment: Do you want to hurt yourself or someone else? Patient reports no desire to harm self or others. Onset of symptoms was January 16, 2023 at 08:00. 09:00 Method Of Arrival: EMS: [facility] rs5 09:00 Acuity: STEPHANY 3 rs5 11:03 No acute neurological deficit is noted. The patients blood glucose was checked before rs5 arriving to the hospital and was found to be normal. Stroke Activation: Symptom onset < 3 hours Physician: Stroke Attending; Name: ; Notified At: ; Arrived At: Physician: Chief Stroke Resident; Name: ; Notified At: ; Arrived At: Physician: Stroke Resident; Name: ; Notified At: ; Arrived At: Physician: ED Attending; Name: ; Notified At: ; Arrived At: Physician: ED Resident; Name: ; Notified At: ; Arrived At: Historical: - Allergies: 09:08 PENICILLINS; rs5 - Home Meds: 10:49 quetiapine 25 mg oral tablet every day at bedtime [Active]; trazodone 50 mg Oral tablet aa5 every day at bedtime [Active]; atorvastatin 40 mg oral tablet every day at bedtime [Active]; divalproex 500 mg oral tablet, delayed release (enteric coated) 2 tabs 2 times per day [Active]; aspirin 81 mg Oral capsule 2 caps once [Active]; clopidogrel 75 mg oral tablet daily [Active]; folic acid 1 mg Oral tablet once [Active]; - PMHx: 09:08 Cerebrovascular accident; Seizure; rs5 10:41 Dementia; Schizophrenia; Dysphagia; Alcohol induced dementia; Hypercholesterolemia; aa5 visual hallucinations; 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 - Social history:: Smoking status: unknown. - Family history:: not pertinent. - Hospitalizations: : No recent hospitalization is reported. Screenin:02 [facility] ED Fall Risk Assessment (Adult) History of falling in the last 3 months, rs5 including since admission No falls in past 3 months (0 pts) Confusion or Disorientation Yes (5 pts) Intoxicated or Sedated Yes (3 pts) Impaired Gait Yes (1 pt) Mobility Assist Device Used Yes (1 pt) Altered Elimination No (0 pt) Score/Fall Risk Level 3 or more points = High Risk Oriented to surroundings, Maintained a safe environment, Educated pt \\T\\ family on fall prevention, incl call for assistance when getting out of bed, Hourly rounding (assess needs \\T\\ fall precautionary measures) done. 09:02 Abuse screen: Denies threats or abuse. Nutritional screening: No deficits noted. rs5 Tuberculosis screening: No symptoms or risk factors identified. Assessment: 09:00 General: Appears in no apparent distress. comfortable, Behavior is calm, cooperative. rs5 09:00 Pain: Denies pain. Neuro: Level of Consciousness is awake, alert, obeys commands, rs5 confused, Oriented to person, time, Welfare Interviewer are equal bilaterally Weakness in left leg(s) foot/feet Speech is normal, Facial symmetry appears normal, Intact Babinski is negative. Cardiovascular: Heart tones S1 S2 present Rhythm is regular. Respiratory: Airway is patent Respiratory effort is even, unlabored, Respiratory pattern is regular, symmetrical, Breath sounds are clear bilaterally. GI: Abdomen is round non-distended, Bowel sounds present X 4 quads. Abd is soft and non tender X 4 quads. : No signs and/or symptoms were reported regarding the genitourinary system. EENT: No signs and/or symptoms were reported regarding the EENT system. EENT: No signs and/or symptoms were reported regarding the EENT system. Reports loss of vision in eyes bilat. Pupils 3mm, equal, round, don't react to light and don't accomidate. Derm: Skin is intact, Skin is pink, warm \\T\\ dry. Musculoskeletal: Range of motion: limited in left lower extremity. 09:00 VAN Scoring: Arm Drift: Patients demonstrates NO arm weakness. Patient is VAN Negative. rs5 Visual Disturbance: Field Cut: Abnormal visual caceres noted. Provider notified of +VAN scoring. Aphasia: Patient exhibits both expressive and receptive aphasia. Provider notified of +VAN scoring. Neglect: No neglect noted. 09:10 Reassessment: Nurse caring for patient at [facility] contacted and reports last time rs5 patient could see out of both eyes was at 0700. Pt reported he could not see out of eyes bilat at 0800. Nurse states "He's had seizures before and when he has, he's lost his vision temporarily. No seizure was observed and patient denied having had a seizure. He does not wear prescription glasses.". 09:15 Reassessment: Pt taken to CT accompanied by nurse. rs5 09:29 Reassessment: Pt back from CT scan. rs5 09:30 Reassessment: Provider at bedside. rs5 09:33 Reassessment: Pt reports vision is improved and is now able to make out figures. rs5 09:33 Neuro: Level of Consciousness is awake, alert, obeys commands, confused, Oriented to rs5 person, Pupils are Pupil Size: 3mm, equal, round non-reactive. 09:33 Neuro: Welfare Interviewer are equal bilaterally Speech is normal, Facial symmetry appears normal, rs5 Pupils are Pupil Size: 3mm, equal, round, do not react to light and accomidate Intact. 09:35 Wilma Swallow Protocol Brief Cognitive Screen What is your name? Normal, Where are you rs5 right now? Abnormal: Pt states "somewhere in [place]". What year is it? Normal. Oral Mechanism Examination Facial Symmetry: Normal, Motion: Normal, Lip Closure: Normal, Oral Mechanism Result: Normal. 3 oz Water Swallow Challenge: Pt able to drink all water without stopping, coughing, choking or throat clearing: Yes Result: PASS Notified: Roni Alonso MD. TNKase (Tenecteplase) Screening: Indications: Definite evidence of stroke, ischemic, embolic, or hypertensive: Yes. Treatment will start within 4.5 hours onset of symptoms: Yes. No evidence of intracranial hemorrhage or CT of head and no evidence of peripheral hemorrhage or recent CVA: No. Consent for thrombolytic therapy: Yes. 10:10 Reassessment: TNK consent form signed by pt's power of global chief creative officer and by provider. rs5 10:30 Reassessment: Pt reports nausea, provider notified. rs5 10:30 Cardiovascular: Rhythm is regular. Respiratory: Respiratory effort is even, unlabored, rs5 Respiratory pattern is regular, symmetrical. 10:48 Reassessment: Pt states "I feel nauseous and I feel anxious" provider notified. rs5 11:35 Reassessment: Pt taken for X-ray, technicians called and said pt is feeling anxious, is rs5 moving and they are having a hard time obtaining an MRI. Provider notified. 11:40 Reassessment: Pt has been hospitalized . rs5 Vital Signs: 09:00 BP 108 / 76; Pulse 66; Resp 17; Pulse Ox 99% ; rs5 09:49 Weight 70 kg (M); rs5 10:10 BP 106 / 79; Pulse 67; Resp 17; Pulse Ox 99% on R/A; rs5 10:27 BP 103 / 84; Pulse 72; Resp 16; Pulse Ox 98% on R/A; rs5 10:40 BP 101 / 73; Pulse 67; Resp 17; Pulse Ox 99% on R/A; rs5 10:55 BP 110 / 76; Pulse 66; Resp 16; Pulse Ox 99% on R/A; rs5 11:10 BP 115 / 78; Pulse 59; Resp 17; Pulse Ox 98% on R/A; rs5 11:17 BP 120 / 81; Pulse 68; Resp 17; Pulse Ox 99% on R/A; rs5 19:15 BP 191 / 102; Pulse 67; Resp 18; Pulse Ox 100% ; la4 19:45 BP 93 / 61; Pulse 93; Resp 16; Pulse Ox 93% on R/A; la4 20:15 BP 122 / 86; Pulse 93; Resp 18; Temp 99.1(TE); Pulse Ox 94% ; la4 Izabela Coma Score: 20:43 Eye Response: spontaneous(4). Motor Response: obeys commands(6). Verbal Response: la4 oriented(5). Total: 15. NIH Stroke Scale Scores: 09:01 NIHSS Score: 8 rs5 ED Course: 09:00 Patient arrived in ED. rs5 09:02 Roni Alonso MD is Attending Physician. rn 09:02 Patient has correct armband on for positive identification. Placed in gown. Bed in low rs5 position. Call light in reach. Side rails up X2. Adult w/ patient. 09:03 Triage completed. rs5 09:09 Inserted saline lock: 22 gauge in right antecubital area, using aseptic technique. rs5 Blood collected. 09:17 Inserted saline lock: 22 gauge in left antecubital area, using aseptic technique. rs5 09:27 Gilmer Grullon, RN is Primary Nurse. rs5 09:35 CT Head Angio In Process Unspecified. EDMS 09:35 CT Neck Angio In Process Unspecified. EDMS 09:35 CT Stroke Brain w/o Contrast In Process Unspecified. EDMS 09:45 Stroke CXR 1 View In Process Unspecified. EDMS 10:18 Julio Alvarenga is Hospitalizing Provider. rn 10:49 Thyroid Stimulating Hormone Sent. rs5 10:49 T4 Free Sent. rs5 19:12 Primary Nurse role handed off by Gilmer Grullon, JORDNY as6 20:30 Amish Mejia, RN is Primary Nurse. la4 Administered Medications: 09:28 Drug: Ativan IVP 0.5 mg IVP once Route: IVP; Site: left antecubital; rs5 09:45 Follow up: Response: No adverse reaction rs5 09:58 Drug: foLIC Acid IVPB 1 mg IVPB once Route: IVPB; Site: left antecubital; rs5 10:15 Follow up: Response: No adverse reaction rs5 10:12 Drug: TNK FOR STROKE - Tenecteplase IV 0.25 mg/kg IV at per protocol once; MAX rs5 DOSE 25 mg, IVP over 5 seconds {Co-Signature: ph (Sarah Curtis RN).} Route: IV; Rate: per protocol; Site: left antecubital; 10:28 Follow up: Response: No adverse reaction rs5 10:58 Drug: Ativan IVP 0.5 mg IVP once Route: IVP; Site: left antecubital; rs5 11:13 Follow up: Response: No adverse reaction rs5 10:58 Drug: Ondansetron IVP 4 mg IVP once; over 2 minutes Route: IVP; Site: left antecubital; rs5 11:13 Follow up: Response: No adverse reaction rs5 11:45 Drug: Ativan IVP 0.5 mg IVP once Route: IVP; Site: left antecubital; rs5 12:05 Follow up: Response: No adverse reaction rs5 12:05 Follow up: Response: Anxiety decreased rs5 Medication: 20:43 VIS not applicable for this client. la4 Point of Care Testing: Blood Glucose: 09:30 Blood Glucose: 95 mg/dL; rs5 Ranges: Outcome: 10:19 Decision to Hospitalize by Provider. rn 21:20 Patient left the ED. cm10 NIH Stroke Scale - NIH Stroke Score Date: 01/16/2023 Time: 09:01 Total Score = 8 10. Dysarthria (speech clarity - read or repeat words) - 1(Mild to Moderate) 11. Extinction and Inattention (visual/tactile/auditory/spatial/personal) - 0(No abnormality) 1a. Level of Consciousness (LOC) - 0(Alert) 1b. Level of Consciousness (LOC) (Month \\T\\ Age) - 1(One) 1c. LOC Commands (Open \\T\\ Closes Eyes/Design Center Consultant) - 0(Both) 2. Best Gaze (Lateral Gaze Paresis) - 1(Partial gaze palsy) 3. Visual Field Loss - 3(Bilateral hemianopia) 4. Facial Palsy - 0(Normal) 5a. Left Arm: Motor (10-second hold) - 0(No drift) 5b. Right Arm: Motor (10-second hold) - 0(No drift) 6a. Left Leg: Motor (5-second hold - always test supine) - 1(Drift) 6b. Right Leg: Motor (5-second hold - always test supine) - 0(No drift) 7. Limb Ataxia (finger/nose \\T\\ heel/castañeda - test with eyes open) - 0(Absent) 8. Sensory Loss (pinprick arms/legs/face) - 0(Normal) 9. Best Language: Aphasia (description/naming/reading) - 1(Mild to moderate aphasia) Initials: rs5 Signatures: Dispatcher [employer] EDMS Roni Alonso MD MD rn Calderon, Audri, RN RN aa5 Jam Peterson, RN RN as6 Gilmer Grullon, RN RN rs5 Shereen Montalvo, RN RN [id number] Amish Mejia, RN RN la4 Sarah Curtis RN ph Corrections: (The following items were deleted from the chart) 09:38 09:37 Inserted saline lock: 22 gauge in right antecubital area, using aseptic rs5 technique. Blood collected. rs5 10:36 10:35 Neuro: Level of Consciousness is awake, alert, obeys commands, confused, rs5 Oriented to person, Pupils are Pupil Size: 3mm, equal, round non-reactive, rs5 09:00 Neuro: Level of Consciousness is awake, alert, obeys commands, confused, rs5 Oriented to person, time, rs5 11: 09:33 Reassessment: Pt reports vision is improved and is now able to make out rs5 figures. rs5
--- NOTE | 2023-01-16 10:20 | EDPHYS ---
Physician Documentation [facility] Name: Marcell Platt Age: 52 yrs Sex: Male : 1970 Arrival Date: 01/16/2023 Time: 08:59 Bed 2 Private MD: ED Physician Roin Alonso HPI: 01/16 10:14 This 52 yrs old Male presents to ER via EMS with complaints of Eye rn Problem. 10:14 The patient presents to the emergency department with a vision problem, blurred vision. rn Onset: The symptoms/episode began/occurred this morning. Associated signs and symptoms: Pertinent positives: This patient does not have any pertinent positives. Pertinent negatives: fever, headache, seizure, syncope. Severity of symptoms: At their worst the symptoms were moderate in the emergency department the symptoms are unchanged. Current symptoms: visual disturbance, blurred vision. The patient has experienced a previous episode. The patient has not recently seen a physician. Patient brought in by EMS from retirement after noted to have decreased vision that began this morning. Last known normal was 0700, and noted to have visual disturbances at 8 AM. Patient has baseline right-sided weakness but no new weakness or paresthesias. No facial droop.. Historical: - Allergies: 09:08 PENICILLINS; rs5 - Home Meds: 10:49 quetiapine 25 mg oral tablet every day at bedtime [Active]; trazodone 50 mg Oral tablet aa5 every day at bedtime [Active]; atorvastatin 40 mg oral tablet every day at bedtime [Active]; divalproex 500 mg oral tablet, delayed release (enteric coated) 2 tabs 2 times per day [Active]; aspirin 81 mg Oral capsule 2 caps once [Active]; clopidogrel 75 mg oral tablet daily [Active]; folic acid 1 mg Oral tablet once [Active]; - PMHx: 09:08 Cerebrovascular accident; Seizure; rs5 10:41 Dementia; Schizophrenia; Dysphagia; Alcohol induced dementia; Hypercholesterolemia; aa5 visual hallucinations; 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 - Social history:: Smoking status: unknown. - Family history:: not pertinent. - Hospitalizations: : No recent hospitalization is reported. ROS: 10:14 Constitutional: Negative for fever, chills, and weight loss, Eyes: Negative for injury, rn pain, redness, and discharge, Neck: Negative for injury, pain, and swelling, Cardiovascular: Negative for chest pain, palpitations, and edema, Respiratory: Negative for shortness of breath, cough, wheezing, and pleuritic chest pain, Abdomen/GI: Negative for abdominal pain, nausea, vomiting, diarrhea, and constipation, MS/Extremity: Negative for injury and deformity, Skin: Negative for injury, rash, and discoloration, Neuro: Positive for vision deficit Exam: 10:14 Constitutional: This is a well developed, well nourished patient who is awake, alert, rn and in no acute distress. Head/Face: Normocephalic, atraumatic. Eyes: Pupils equal round and reactive to light, extra-ocular motions intact. No nystagmus. Cardiovascular: Regular rate and rhythm. No pulse deficits. Respiratory: No increased work of breathing, no retractions or nasal flaring. Abdomen/GI: Soft, non-tender MS/ Extremity: Pulses equal, no cyanosis. Neurovascular intact. Full, normal range of motion. Equal circumference. Neuro: Awake and alert, GCS 15, oriented to person. Cranial nerves II-XII grossly intact. Right upper and lower extremity weakness. Sensory grossly intact. Cerebellar exam normal. 11:02 ECG was reviewed by the Attending Physician. rn Vital Signs: 09:00 BP 108 / 76; Pulse 66; Resp 17; Pulse Ox 99% ; rs5 09:49 Weight 70 kg (M); rs5 10:10 BP 106 / 79; Pulse 67; Resp 17; Pulse Ox 99% on R/A; rs5 10:27 BP 103 / 84; Pulse 72; Resp 16; Pulse Ox 98% on R/A; rs5 10:40 BP 101 / 73; Pulse 67; Resp 17; Pulse Ox 99% on R/A; rs5 10:55 BP 110 / 76; Pulse 66; Resp 16; Pulse Ox 99% on R/A; rs5 11:10 BP 115 / 78; Pulse 59; Resp 17; Pulse Ox 98% on R/A; rs5 11:17 BP 120 / 81; Pulse 68; Resp 17; Pulse Ox 99% on R/A; rs5 19:15 BP 191 / 102; Pulse 67; Resp 18; Pulse Ox 100% ; la4 19:45 BP 93 / 61; Pulse 93; Resp 16; Pulse Ox 93% on R/A; la4 20:15 BP 122 / 86; Pulse 93; Resp 18; Temp 99.1(TE); Pulse Ox 94% ; la4 NIH Stroke Scale Scores: 09:01 NIHSS Score: 8 rs5 Izabela Coma Score: 20:43 Eye Response: spontaneous(4). Motor Response: obeys commands(6). Verbal Response: la4 oriented(5). Total: 15. MDM: 09:02 Patient medically screened. rn 09:12 ED course: Unclear exactly what happened. Calling retirement for further information. rn Chart review shows a previous visit in June 2021 with similar presentation, was diagnosed with seizure at that time, was altered, and complained of vision loss at that time as well. Patient is not exactly sure when this started and is slightly confused as well. Activated code stroke and patient on his way to CT scan.. 09:16 ED course: care home reports last known normal was 7 AM when they assisted him to rn the bathroom. Then patient was noted to have difficulty with his vision and unable to see things that were handed to him during breakfast time at 8 AM. care home denies any seizure activity.. 09:23 Management of patient was discussed with the following: Scrapper: Discussed case with rn Dr. Acosta, agrees difficult to tell whether he had a seizure versus stroke. Advises to try 0.5 mg of Ativan to see if symptoms improve. States if symptoms improve more likely seizure. If CT head is negative and symptoms do not improve he recommends TNKase administration given sudden onset and visual disturbances.. 09:43 ED course: Ativan did not change anything. Patient is following commands but seems rn altered, no change in vision. Patient can see light and some movement but cannot describe details. Patient is oriented to person and time but not place. Given no seizure activity reported and sudden onset of symptoms without improvement after Ativan, decision made to give TNKase. Patient also reports that he has not had a seizure in a long time, since last year.. 10:13 ED course: Family has arrived and give more story. Agree that patient has not had a rn seizure in a very long time. They are also concerned that he has had another stroke. This will be the third stroke. Chart review shows a previously confirmed stroke in September of this year, just past the 3-month cutoff for TNKase. Reconfirmed with Dr. Acosta and agrees with administration of TNKase at this time. Family and power of civil litigation attorney here and signed consent for TNKase as well and have been explained all risks and benefits of TNKase.. 10:14 Data reviewed: vital signs, nurses notes, lab test result(s), radiologic studies, CT rn scan, and as a result, I will admit patient. Consideration of Admission/Observation Patient was admitted/placed on observation. Escalation of care including admission/observation considered. Care significantly affected by the following chronic conditions: Previous strokes, seizure. Counseling: I had a detailed discussion with the patient and/or guardian regarding the historical points, exam findings, and any diagnostic results supporting the discharge/admit diagnosis, lab results, radiology results, the need for further work-up and treatment in the hospital. ED course: I personally spent 35 minutes engaged in work directly related to the individual patient's care. This does not include any time spent performing procedures. The patient has been deemed critically ill because of the amount of time required to sort out what happened today, possible acute stroke requiring TNKase.. 01/16 09:07 Order name: Basic Metabolic Panel; Complete Time: 11:10 rn 01/16 09:07 Order name: CBC with Diff; Complete Time: 09:55 rn 01/16 09:07 Order name: High Sensitivity Troponin; Complete Time: 11: rn 01/16 09:07 Order name: Protime (+inr); Complete Time: 09:55 rn 01/16 09:07 Order name: Ptt, Activated; Complete Time: 09:55 rn 01/16 09:47 Order name: Glucose, Ancillary Testing; Complete Time: 09:55 EDNE 01/16 09:55 Order name: CREATININE WHOLE BLOOD; Complete Time: :55 EDNE 01/16 10:46 Order name: T4 Free; Complete Time: 11:10 EDNE 01/16 10:46 Order name: Thyroid Stimulating Hormone; Complete Time: 11:10 EDNE 01/16 09:07 Order name: CT Head Angio; Complete Time: 09:55 rn 01/16 09:07 Order name: CT Neck Angio; Complete Time: 09:55 rn 11/03 09:07 Order name: CT Stroke Brain w/o Contrast; Complete Time: 09:55 rn 01/16 09:07 Order name: Stroke CXR 1 View; Complete Time: 09:55 rn 01/16 10:42 Order name: Brain Wo Cont; Complete Time: 12:55 EDMS 01/16 09:07 Order name: EKG; Complete Time: 09:08 rn 01/16 10:55 Order name: CONS Physician Consult EDNE 01/16 09:07 Order name: Accucheck; Complete Time: 10:12 rn 01/16 09:07 Order name: Cardiac monitoring; Complete Time: 09:28 rn 01/16 09:07 Order name: EKG - Nurse/Tech; Complete Time: 09: rn 01/16 09:07 Order name: IV Saline Lock; Complete Time: 09:28 rn 01/16 09:07 Order name: Labs collected and sent; Complete Time: 10:12 rn 01/16 09:07 Order name: NPO; Complete Time: 10:12 rn 01/16 09:07 Order name: O2 Per Protocol; Complete Time: 10:12 rn 01/16 09:07 Order name: O2 Sat Monitoring; Complete Time: 10:12 rn 01/16 09:07 Order name: Stroke Swallow Screen; Complete Time: 11:20 rn EC:02 Rate is 64 beats/min. Rhythm is regular. QRS [place] is Normal. [place] interval is normal. QRS rn interval is normal. QT interval is normal. No Q waves. T waves are Normal. No ST changes noted. Clinical impression: NSR w/ Non-specific ST/T Changes. Interpreted by me. Reviewed by me. Administered Medications: 09:28 Drug: Ativan IVP 0.5 mg IVP once Route: IVP; Site: left antecubital; rs5 09:45 Follow up: Response: No adverse reaction rs5 09:58 Drug: foLIC Acid IVPB 1 mg IVPB once Route: IVPB; Site: left antecubital; rs5 10:15 Follow up: Response: No adverse reaction rs5 10:12 Drug: TNK FOR STROKE - Tenecteplase IV 0.25 mg/kg IV at per protocol once; MAX rs5 DOSE 25 mg, IVP over 5 seconds {Co-Signature: ph (Sarah Curtis RN).} Route: IV; Rate: per protocol; Site: left antecubital; 10:28 Follow up: Response: No adverse reaction rs5 10:58 Drug: Ativan IVP 0.5 mg IVP once Route: IVP; Site: left antecubital; rs5 11:13 Follow up: Response: No adverse reaction rs5 10:58 Drug: Ondansetron IVP 4 mg IVP once; over 2 minutes Route: IVP; Site: left antecubital; rs5 11:13 Follow up: Response: No adverse reaction rs5 11:45 Drug: Ativan IVP 0.5 mg IVP once Route: IVP; Site: left antecubital; rs5 12:05 Follow up: Response: No adverse reaction rs5 12:05 Follow up: Response: Anxiety decreased rs5 Point of Care Testing: Blood Glucose: 09:30 Blood Glucose: 95 mg/dL; rs5 Ranges: Critical Glucose Levels:Adult <50 mg/dl or >400 mg/dl <40 mg/dl or >180 mg/dl Disposition Summary: 01/16/23 10:19 Hospitalization Ordered Notes: Hospitalization Status: Inpatient Admission rn Provider: Julio Alvarenga rn Condition: Stable rn Problem: new rn Symptoms: are unchanged rn Bed/Room Type: Standard rn Location: Intensive Care Unit(01/16/23 20:04) Room Assignment: 1-(01/16/23 20:04) mw Diagnosis - Cerebral infarction, unspecified rn - Sudden visual loss, bilateral rn Forms: - Medication Reconciliation Form rn - SBAR form rn - Leadership Thank You Letter production pattern maker time excluding procedures: 10:14 Critical care time: Bedside Care: 25 minutes, Consultation: 5 minutes, Family rn Intervention: 5 minutes. Total time: 35 minutes NIH Stroke Scale - NIH Stroke Score Date: 01/16/2023 Time: 09:01 Total Score = 8 10. Dysarthria (speech clarity - read or repeat words) - 1(Mild to Moderate) 11. Extinction and Inattention (visual/tactile/auditory/spatial/personal) - 0(No abnormality) 1a. Level of Consciousness (LOC) - 0(Alert) 1b. Level of Consciousness (LOC) (Month \T\ Age) - 1(One) 1c. LOC Commands (Open \T\ Closes Eyes/District Traffic Chief) - 0(Both) 2. Best Gaze (Lateral Gaze Paresis) - 1(Partial gaze palsy) 3. Visual Field Loss - 3(Bilateral hemianopia) 4. Facial Palsy - 0(Normal) 5a. Left Arm: Motor (10-second hold) - 0(No drift) 5b. Right Arm: Motor (10-second hold) - 0(No drift) 6a. Left Leg: Motor (5-second hold - always test supine) - 1(Drift) 6b. Right Leg: Motor (5-second hold - always test supine) - 0(No drift) 7. Limb Ataxia (finger/nose \T\ heel/castañeda - test with eyes open) - 0(Absent) 8. Sensory Loss (pinprick arms/legs/face) - 0(Normal) 9. Best Language: Aphasia (description/naming/reading) - 1(Mild to moderate aphasia) Initials: rs5 Signatures: Dispatcher [employer] EDMS Shannon Ann RN RN Roni Alonso MD MD rn Calderon, Audri, RN RN aa5 Aline Rollins Ricky, RN RN rs5 Sarah Curtis RN ph Corrections: (The following items were deleted from the chart) 09:17 09:16 ED course: care home reports last known normal was 7 AM when they rn assisted him to the bathroom. Then patient was noted to have difficulty with his vision and unable to see things that were handed to him during breakfast time at 8 AM.. rn 10:44 10:42 THYROID STIMULAT HORMONE+C.LAB.BRZ ordered. EDNE EDMS 10:44 10:42 T4 FREE+C.LAB.BRZ ordered. EDNE EDMS 10:53 10:19 Intensive Care Unit rn eb 10:53 10:19 rn eb 13:38 10:53 [facility] ER HOLD eb eb 13:38 10:53 ERHOLD- eb eb 14:13 13:38 Intensive Care Unit eb eb 14:13 13:38 1- eb eb 14:13 14:13 eb eb 20:04 14:13 [facility] ER HOLD eb mw 20:04 14:13 ERHOLD- eb mw
[2023-01-16] MEDS ORDERED: ONDANSETRON 4 MG/2 ML VIAL ONE (10:42)
--- NOTE | 2023-01-16 10:58 | P.HP ---
Certification for Inpatient Patient admitted to: Observation With expected LOS: <2 Midnights Patient will require the following post-hospital care: Longterm Practitioner: I am a practitioner with admitting privileges, knowledge of patient current condition, hospital course, and medical plan of care. Services: Services provided to patient in accordance with Admission requirements found in Title 42 Section 412.3 of the Code of Federal Regulations <Kole Hydesancho Fany - Last Filed: 01/16/23 14:40> Patient History Date of Service: 01/16/23 - Past Medical/Surgical History -: Seizure disorder -: CVA -: Schizophrenia Psychosocial/ Personal History: Patient was at home with his family, they are having difficulty caring for him. - Social History Alcohol use: No CD- Drugs: No Caffeine use: Yes <Darleen Lubin - Last Filed: 01/16/23 10:58> Date of Service: 01/16/23 Reason for admission: Blurred vision; possible seizure disorder; history of CVA History of Present Illness: Patient is a 52-year-old gentleman came to the hospital with blurred vision. Patient was at the correction. According to the correction staff he may have had a seizure. He has had a history of seizure disorder. He was here a couple years ago with blurred vision after having a seizure. It tends to be part of his postictal state. But he does have a history of CVA which is left his left side weak and him immobile to the point where he is living at a correction. Patient lives at [facility]. Patient will be admitted to the hospital for further work-up. CT scan and CT angio of the head and neck have been negative. MRI of the brain was unremarkable for an acute CVA. Patient will continue with further monitoring. Currently on Depakote. We will add Keppra to his regimen for his breakthrough seizures. - Social History Smoking Status: Former smoker <Henry Hydecuate Fany - Last Filed: 01/16/23 14:40> Allergies No Known Allergies Allergy (Unverified 06/23/21 02:47) Home Medications: Divalproex ER [Depakote *ER] 500 mg PO BID 10/04/22 Aspirin 2 tab PO DAILY #60 tab.chew 10/07/22 Atorvastatin Calcium [Lipitor] 40 mg PO BEDTIME tab 10/07/22 Clopidogrel Bisulfate [Plavix*] 75 mg PO DAILY 10/07/22 Folic Acid 1 mg PO DAILY #30 tab 10/07/22 Quetiapine [Seroquel*] 25 mg PO BID tab 10/07/22 Review of Systems 10-point ROS is otherwise unremarkable <Sabi Hyde - Last Filed: 01/16/23 14:40> Physical Examination - Studies Laboratory Data (last 24 hrs) 01/16/23 01/16/23 01/16/23 09:28 09:28 09:25 WBC 8.60 Hgb 15.1 Hct 44.2 Plt Count 211 PT 11.3 INR 1.03 APTT 36.6 Sodium 138 Potassium 3.8 BUN 9 Creatinine 1.08 Glucose 93 <Darleen Lubin - Last Filed: 01/16/23 10:58> - Vital Signs Temperature: 98 F ( reviewed) - Physical Exam General: Alert, In no apparent distress, Oriented x3 HEENT: Atraumatic, PERRLA, Mucous membr. moist/pink, EOMI, Sclerae nonicteric Neck: Supple, 2+ carotid pulse no bruit, No LAD, Without JVD or thyroid abnormality Respiratory: Clear to auscultation bilaterally, Normal air movement Cardiovascular: Regular rate/rhythm, Normal S1 S2 Gastrointestinal: Normal bowel sounds, Soft and benign, Non-distended, No tender ness Musculoskeletal: No clubbing, No swelling, No tenderness Integumentary: No rashes Neurological: Abnormal gait, Abnormal strength, Abnormal tone (Contractures of the left side), Abnormal affect Lymphatics: No axilla or inguinal lymphadenopathy - Studies Laboratory Data (last 24 hrs) 01/16/23 01/16/23 01/16/23 09:28 09:28 09:25 WBC 8.60 Hgb 15.1 Hct 44.2 Plt Count 211 PT 11.3 INR 1.03 APTT 36.6 Sodium 138 Potassium 3.8 BUN 9 Creatinine 1.08 Glucose 93 <Sabi Hyde - Last Filed: 01/16/23 14:40> Assessment and Plan - Advance Directives Does patient have a Living Will: No Does patient have a Durable POA for Healthcare: No <Darleen Lubin - Last Filed: 01/16/23 10:58> - Problems (Diagnosis) (1) Blurred vision Current Visit: Yes Status: Acute (2) Postictal state Current Visit: Yes Status: Acute (3) Hx of ischemic left MCA stroke Current Visit: Yes Status: Acute (4) Altered mental status Current Visit: No Status: Acute (5) Seizures Current Visit: No Status: Acute - Plan 1. MRI of the brain 2. Antiplatelet and statin therapy 3. Lipid profile 4. Physical therapy and speech therapy consultation 5. DVT prophylaxis 6. Neurochecks every 4 hours 7. Reassess stroke scale 8. Add antiepileptic, Keppra, to Depakote 9. GI and DVT prophylaxis Discharge Plan: [facility] Plan to discharge in: 24 Hours - Code Status/Comfort Care Code Status Assessed: Yes Code Status: Full Code Critical Care: No Time Spent Managing Pts Care (In Minutes): 45 <Sabi Hyde - Last Filed: 01/16/23 14:40>
[2023-01-16 11:03] LABS: Thyroid Stimulating Hormone 3.63 uIU/mL (0.358-3.740)
--- NOTE | 2023-01-16 12:24 | RAD REPORT ---
EXAM DESCRIPTION: MRI - Brain Wo Cont - 01/16/2023 12:17 pm CLINICAL HISTORY: CVA COMPARISON: Brain Wo Cont dated 10/06/2022 TECHNIQUE: Sagittal T1-weighted images were obtained along with PD/heavily T2-weighted and T2-FLAIR images. Axial DWI and ADC mapping sequences were also obtained along with coronal heavily T2-weighted images were obtained. FINDINGS: No intracranial hemorrhage, mass or acute infarction. There is no edema or shift of midlin e structures. No extra-axial fluid collections. Signal voids are seen as a normal finding in the natalya r intracranial vessels. Advanced chronic small vessel ischemic changes. Remote bilateral parietal and frontal lobe cortical infarcts. Ex vacuo dilatation of ventricular system. Age advanced cerebral atr ophy. Motion limited. Mastoid air cells and paranasal sinuses are clear. IMPRESSION: No acute intracranial abnormality. Specifically, no evidence of acute infarct. Advanced chronic small vessel ischemic changes, sequela remote infarcts, and age advanced cerebral atrophy.
[2023-01-16] MEDS ORDERED: ONDANSETRON 4 MG/2 ML VIAL IV PRN (16:38)
[2023-01-16 16:48] VITALS: BMI 22.1
[2023-01-16] MEDS ORDERED: levETIRAcetam 500 MG in NA CHLORIDE 0.9% 100 ML IV ONE ×2 (17:00)
[2023-01-16] MEDS: DIVALPROEX ER 250 MG TAB PO SCH (21:00)
[2023-01-16] MEDS ORDERED: ATORVASTATIN 40 MG TAB PO SCH (21:00)
[2023-01-16] MEDS: levETIRAcetam 500 MG TAB PO SCH (22:08)
[2023-01-16] MEDS: QUETIAPINE 25 MG TAB PO SCH (22:08)
[2023-01-17 04:49] LABS: Absolute Lymphocytes (CBC) 2.3 K/uL (0.7-4.9); MCV 91.5 fL (80-100); Platelets 190 thou/uL (152-406); RBC Red Blood Cell Count 4.04 M/uL (4.33-5.43)
[2023-01-17 05:07] LABS: Magnesium 2.3 mg/dL (1.6-2.4); Potassium 3.7 mEq/L (3.5-5.1)
--- NOTE | 2023-01-17 07:04 | P.PN ---
Subjective Date of Service: 01/17/23 Primary Care Provider: Dr. Hyde Chief Complaint: Blurred vision; possible seizure disorder; history of CVA Subjective: No new changes Family reports baseline confusion, bilateral upper, lower extremity weakness from prior CVA, Review of Systems 10-point ROS is otherwise unremarkable Physical Examination - Vital Signs Temperature: 97 F Blood Pressure: 110/77 Pulse: 65 Respirations: 17 Pulse Ox (%): 98 - Physical Exam General: Alert, Oriented x1, Other HEENT: Mucous membr. moist/pink Neck: Supple, 2+ carotid pulse no bruit Respiratory: Clear to auscultation bilaterally, Normal air movement Cardiovascular: No edema, Normal pulses Capillary refill: <2 Seconds Gastrointestinal: Normal bowel sounds, Soft and benign, Other (Moderate generalized weakness) Integumentary: No rashes Neurological: Abnormal strength, Dementia - Studies Laboratory Data (last 24 hrs) 01/16/23 01/16/23 01/16/23 09:28 09:28 09:25 WBC 8.60 Hgb 15.1 Hct 44.2 Plt Count 211 PT 11.3 INR 1.03 APTT 36.6 Sodium 138 Potassium 3.8 BUN 9 Creatinine 1.08 Glucose 93 Assessment And Plan - Plan Assessment/Plan Problems (Diagnosis) Blurred vision Current Visit: Yes Status: Acute Dr. Acosta consulted TNK administered 01/17 10:05 Neurochecks, keep head elevated greater than 30 degrees MRI of the brain IMPRESSION: No acute intracranial abnormality. Specifically, no evidence of acute infarct. Advanced chronic small vessel ischemic changes, sequela remote infarcts, and age advanced cerebral atrophy. Focus of Due to the blurred vision Hx of ischemic left MCA stroke Current Visit: Yes Status: Acute Antiplatelet and statin therapy Lipid profile Postictal state Current Visit: Yes Status: Acute Add antiepileptic, Keppra, to Depakote Ativan given in the emergency room Home Seroquel 25 p.o. twice daily for anxiety Altered mental status Current Visit: No Status: Acute Fall precautions, Seizures Current Visit: No Status: Acute Add antiepileptic, Keppra, to Depakote Ativan given in the emergency room Full code Diet bedside swallow eval Discharge Plan: Half-Way Discharge Plan: Half-Way - Code Status/Comfort Care Code Status: Full Code Physician Review: Patient Assessed, Agree with Above Assessment and Plan Critical Care: No Time Spent Managing PTS Care (In Minutes): 70
[2023-01-17] MEDS ORDERED: POTASSIUM CL SA 10 MEQ TAB PO ONE (09:00)
[2023-01-17] MEDS ORDERED: ASPIRIN 81 MG CHEWABLE TABLET PO SCH (09:00)
[2023-01-17] MEDS ORDERED: FOLIC ACID 1 MG TABLET PO SCH (09:00)
[2023-01-17] MEDS ORDERED: CLOPIDOGREL 75 MG TABLET PO SCH (09:00)
[2023-01-17] MEDS: QUETIAPINE 25 MG TAB PO SCH (09:01)
[2023-01-17] MEDS: levETIRAcetam 500 MG TAB PO SCH (09:01)
[2023-01-17] MEDS: DIVALPROEX ER 250 MG TAB PO SCH (09:02)
[2023-01-17 09:46] VITALS: O2SAT 99
--- NOTE | 2023-01-17 11:06 | P.DS ---
Admission Date: 01/16/23 Discharge Date: 01/17/23 Primary Care Provider: Dr. Hyde Disposition: TRANSFER TO ALF Discharge Condition: GOOD Reason for Admission: Blurred vision; possible seizure disorder; history of CVA Procedures: Neurology consult Dr. Acosta - Susie (1) Blurred vision Current Visit: Yes Status: Acute (2) Hx of ischemic left MCA stroke Current Visit: Yes Status: Acute (3) Postictal state Current Visit: Yes Status: Acute Brief History of Present Illness: 52-year-old gentleman came to the hospital with blurred vision. Patient was at the correction. According to the correction staff he may have had a seizure. He has had a history of seizure disorder. He was here a couple years ago with blurred vision after having a seizure. It tends to be part of his postictal state. But he does have a history of CVA which is left his left side weak and him immobile to the point where he is living at a correction. Patient lives at [facility]. Patient will be admitted to the hospital for further work-up. CT scan and CT angio of the head and neck have been negative. MRI of the brain was unremarkable for an acute CVA. Patient will continue with further monitoring. Currently on Depakote. We will add Keppra to his regimen for his breakthrough seizures. Hospital Course: General: Alert, In no apparent distress, Oriented x3 HEENT: Atraumatic, PERRLA, Mucous membr. moist/pink, EOMI, Sclerae nonicteric Neck: Supple, 2+ carotid pulse no bruit, No LAD, Without JVD or thyroid abnormality Respiratory: Clear to auscultation bilaterally, Normal air movement Cardiovascular: Regular rate/rhythm, Normal S1 S2 Gastrointestinal: Normal bowel sounds, Soft and benign, Non-distended, No tenderness Musculoskeletal: No clubbing, No swelling, No tenderness Integumentary: No rashes Neurological: Abnormal gait, Abnormal strength, Abnormal tone (Contractures of the left side), Abnormal affect Lymphatics: No axilla or inguinal lymphadenopathy Patient was evaluated for blurred vision, to evaluate for CVA. MRI of the brain shows chronic ischemic changes, no acute abnormality. Antiseizure medication was resumed, Depakote. Keppra was added. Patient was postictal in the emergency room. Patient has returned to baseline. No acute changes. Plan to repeat CT of the head 24 hours post TNK. Patient will return to [facility] to resume physcial therapy at facility if CT of the head is negative. Can resume home medications. Patient is tolerating p.o. diet, Vital Signs/Physical Exam: Temp Pulse Resp BP Pulse Ox 98.7 F 69 13 105/92 H 99 01/17/23 08:00 01/17/23 09:00 01/17/23 09:00 01/17/23 09:00 01/17/23 09:00 Laboratory Data at Discharge: WBC 10.50 thou/uL (4.3-10.9) 01/17/23 04:31 Hgb 13.0 g/dL (13.6-17.9) L D 01/17/23 04:31 Hct 37.0 % (39.6-49.0) L 01/17/23 04:31 Plt Count 190 thou/uL (152-406) 01/17/23 04:31 PT 11.3 SECONDS (9.5-12.5) 01/16/23 09:28 INR 1.03 01/16/23 09:28 APTT 36.6 SECONDS (24.3-36.9) 01/16/23 09:28 Sodium 137 mEq/L (136-145) 01/17/23 04:31 Potassium 3.7 mEq/L (3.5-5.1) 01/17/23 04:31 BUN 11 mg/dL (7-18) 01/17/23 04:31 Creatinine 0.80 mg/dL (0.70-1.30) 01/17/23 04:31 Glucose 104 mg/dL (74-106) 01/17/23 04:31 Magnesium 2.3 mg/dL (1.6-2.4) 01/17/23 04:31 Home Medications: Divalproex ER [Depakote *ER] 500 mg PO BID 10/04/22 Aspirin 2 tab PO DAILY #60 tab.chew 10/07/22 Atorvastatin Calcium [Lipitor] 40 mg PO BEDTIME tab 10/07/22 Clopidogrel Bisulfate [Plavix*] 75 mg PO DAILY 10/07/22 Folic Acid 1 mg PO DAILY #30 tab 10/07/22 Quetiapine [Seroquel*] 25 mg PO BID tab 10/07/22 levETIRAcetam [Keppra*] 500 mg PO BID #60 tab 01/17/23 New Medications: levETIRAcetam [Keppra*] 500 mg PO BID #60 tab Physician Discharge Instructions: -DC IV and DC home -Follow-up with PCP in 1 to 2 weeks -Follow-up with Neurology in 1 to 2 weeks -Please call Dr. Hyde at [phone] if any questions regarding hospital stay -Please call nursing station at [phone] if any nursing or medication questions -Return to the emergency room if symptoms worsen Diet: AHA Activity: Fall precautions Followup: Yeny Ronquillo MD [Primary Care Provider] -
--- NOTE | 2023-01-17 12:54 | RAD REPORT ---
EXAM DESCRIPTION: CT - Head Brain Wo Cont - 01/17/2023 12:45 pm CLINICAL HISTORY: s/p tnk COMPARISON: Head angio dated 01/16/2023; Ct Stroke Brain Wo Cont dated 01/16/2023; Brain Wo Cont dated 01/16/2023 TECHNIQUE: All CT scans are performed using dose optimization technique as appropriate and may inclu de automated exposure control or mA/KV adjustment according to patient size. FINDINGS: No intracranial hemorrhage, hydrocephalus or extra-axial fluid collection.No areas of brai n edema or evidence of midline shift. Remote bilateral parietal and frontal lobe cortical infarct. Ag e advanced cerebral atrophy. Chronic small vessel ischemic changes. The paranasal sinuses and mastoids are clear. The calvarium is intact. IMPRESSION: No acute intracranial abnormality. Chronic infarcts, age advanced cerebral atrophy, and advanced chronic small vessel ischemic changes.
[2023-01-17] MEDS ORDERED: PHENYTOIN ER 100 MG CAP PO ONE (14:02)
[2023-01-17 17:36] VITALS: BP 104/88; TEMP 97.4
[2023-01-18] MEDS ORDERED: PHENYTOIN ER 100 MG CAP PO SCH (21:00)
== END 2023-01-17 19:30 ==
LOC: ER 08:59 → ERHOLD 10:51 → INTOOBSV 10:51 → 3RD-ICU 13:52 → ERHOLD 13:52 → 3RD-ICU 20:26
PROVIDERS: ADMIT Hospitalist; ATTEND Hospitalist
DX: H53.8 Other visual disturbances (principal); G40.909 Epilepsy, unspecified, not intractable, without status epilepticus; R41.82 Altered mental status, unspecified; I69.954 Hemiplegia and hemiparesis following unspecified cerebrovascular disease affecting left non-dominant side; I69.993 Ataxia following unspecified cerebrovascular disease; Z88.0 Allergy status to penicillin; Z87.891 Personal history of nicotine dependence
CPT/HCPCS: 92977; 93005; 85025 ×2; 80048 ×2; 36415; 83735; 85610; 82565; 82947; 85730; 84443; 84484; 84439; 70450 ×2; 70496; 70498; 71045; 70551; 97112; 97161; 96375; 96374; 99285; Q9967; J3101; J1953; J2405; G0378 ×4